=== PATIENT | male | born 1955 | race Caucasian/White ===

== ENCOUNTER 2017-11-26 06:55 | Outpatient (CLI) | payer BC ==
--- NOTE | 2017-11-26 08:58 | ULT ---
ABDOMEN ULTRASOUND: HISTORY: Hepatomegaly. COMPARISON: None. TECHNIQUE: Utilizing a multihertz transducer, sonographic imaging of the abdomen is performed in the longitudina l and transverse plane. FINDINGS: Heterogeneous echotexture of the liver due to hepatic steatosis or hepatocellular disease. Right hep atic lobe is enlarged measuring 22 cm. Pancreas is obscured by bowel gas. The spleen is enlarged measuring 17.6 cm. Both kidneys have an overall normal cortical echotexture. Bilaterally, no hydronephrosis. The left kidney measures 12.4 x 5.6 x 5.0 cm. The right kidney measures 12.9 x 6.5 x 5.3 cm. No sonographic evidence of cholelithiasis, gallbladder wall thickening, or pericholecystic fluid. Ne gative [place]'s sign. Common bile duct diameter is 0.4 cm. A small amount of fluid in the perihepatic space. There is an echogenic focus within the main portal vein compatible with thrombus. There is also some thrombus in the visualized inferior vena cava. Suboptimal evaluation of the aorta. IMPRESSION: 1. 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 2. Hepatosplenomegaly. CODE T POS: [facility]
== END 2017-11-26 06:56 | disposition home or self-care (01) ==
LOC: ULT 06:55
PROVIDERS: ATTEND Family Medicine
DX: R16.0 Hepatomegaly, not elsewhere classified (principal); I82.220 Acute embolism and thrombosis of inferior vena cava; R16.2 Hepatomegaly with splenomegaly, not elsewhere classified
CPT/HCPCS: 76700

== ENCOUNTER 2018-02-15 08:49 | Inpatient (IN) | payer BC ==
[2018-02-15 09:06] LABS: #Eosinphils 0.1 thou/uL (0.0-0.7); #Lymphocytes 0.6 thou/uL (1.20-3.40); #Monocytes 0.6 thou/uL (0.11-0.59); #Neutrophils 5.9 thou/uL (1.40-6.50); %Basophils 0.5 % (0.0-1.0); %Eosinophils 1.9 % (0.0-10.0); %Lymphocytes 7.8 % (21.0-51.0); %Monocytes 7.8 % (0.0-10.0); Hemoglobin 8.4 g/dL (14.0-18.0); Mean Corpuscular HGB CONC 32.3 g/dL (32.0-36.0); Mean Corpuscular Hemoglobin 25.2 pg (27.0-31.0); Mean Platelet Volume 8.8 fL (7.4-10.4); Platelet Count 125 thou/uL (130-400); RBC Distribution Width 17.8 % (11.5-14.5); Red Blood Cell (RBC) Count 3.34 mill/uL (4.70-6.10); White Blood Cell (WBC) Count 7.2 thou/uL (4.8-10.8)
[2018-02-15] MEDS ORDERED: Ondansetron ODT 4 MG TAB ONE (09:11)
[2018-02-15 09:41] LABS: ALT (SGPT) 18 U/L (8-55); AST (SGOT) 28 U/L (5-34); Albumin 3.7 g/dL (3.4-4.8); Alkaline Phosphatase 104 U/L (40-150); Anion Gap 14 mmol/L (10-20); BUN (Urea Nitrogen) 20 mg/dL (8.4-25.7); Bilirubin, Total 0.9 mg/dL (0.2-1.2); CK (CPK) 169 U/L (30-200); Calc. Creatinine Clearance 0 mL/min (70-130); Carbon Dioxide 22 mmol/L (23-31); Chloride 107 mmol/L (98-107); Estimated GFR-MDRD 52; Glucose 113 mg/dL (80-115); Potassium 3.9 mmol/L (3.5-5.1); Protein, Total 8.7 g/dL (5.8-8.1); Sodium 139 mmol/L (136-145)
[2018-02-15 09:45] LABS: CKMB 1.6 ng/mL (0-6.6); Troponin I 0.207 ng/mL (< 0.028)
[2018-02-15] MEDS ORDERED: Furosemide 20 MG/2 ML VIAL ONE (10:49)
[2018-02-15] MEDS ORDERED: Enoxaparin Sodium 100 MG/ML SYRINGE ONE (10:49)
[2018-02-15] MEDS ORDERED: Aspirin 325 MG TAB ONE (10:49)
--- NOTE | 2018-02-15 11:09 | RAD ---
CHEST 1 VIEW: Date: 02/15/18 HISTORY: Shortness of breath. COMPARISON: None. FINDINGS: Heart size is enlarged. There are perihilar and lower lobe air space opacities. No pneumothorax. IMPRESSION: 1. Abnormal perihilar and lower lobe air space opacities can be seen with atypical infection. Early edema is a possibility. 2. Mild cardiomegaly. POS: [facility]
--- NOTE | 2018-02-15 11:29 | CT ---
CT ANGIOGRAM THORAX WITH IV CONTRAST AND 3D RECONSTRUCTIONS: Date: 02/15/18 HISTORY: Dyspnea and shortness of breath, which has been persistent since Sunday after chemotherapy medicat ion. Chest tightness. COMPARISON: None available. FINDINGS: There are filling defects seen within segmental and subsegmental right upper lobe pulmonary arteries. Extensive filling defect within right upper lobe pulmonary artery related to pulmonary embolus. Thoracic aorta is not well opacified, but is normal in caliber. Minimal vascular calcifications are s een in the thoracic aorta and pulmonary arteries. There is a small right and tiny left pleural effusion. There are patchy ground-glass densities in the right upper lobe and to a lesser extent involving the right middle lobe and left upper lobe. These ground-glass opacities may be related to infectious or i nflammatory process. There is a 4.0 mm noncalcified left lower lobe pulmonary nodule (image 60, series 3), which is too sm all to further characterize. There is soft tissue density seen within the right hilar region, as well as subcarinal region, in add ition to mild increase in number of lymph nodes in the mediastinum, which are not particularly enlarg ed, but are increased in number. These lymph nodes may be reactive in origin. Calcified left hilar ly mph nodes are present. Calcified granulomata are seen in the visualized spleen. There is an incompletely imaged heterogeneous mass associated with the right adrenal gland, which kris sures 4.3 cm x 2.8 cm on this examination and does not demonstrate an attenuation coefficient compati ble with an adrenal adenoma. Small amount of free fluid is seen adjacent to the liver and spleen. IMPRESSION: 1. Extensive right upper lobe pulmonary emboli. 2. Ground-glass opacities within the lungs bilaterally, much greater in the right upper lobe, which may be related to infectious or inflammatory process. Follow-up to resolution is recommended. 3. Small bilateral pleural effusions. 4. Heterogeneous right adrenal mass. This does not demonstrate attenuation coefficient compatible wi th an adrenal adenoma. A metastatic lesion cannot be entirely excluded. CT abdomen following adrenal mass protocol is recommended. 5. Mild increase in number of mediastinal and hilar lymph nodes, which could be reactive in origin. There is incomplete imaging of what appears to be mildly prominent lymph nodes in the region of the p kiana hepatis, but this is incompletely imaged and could be related to nonopacification of vascular st ructures. This can also be further evaluated on CT abdomen. 6. Small amount of ascites. Above findings discussed with FREDDY Cadena, in the emergency department on 02/15/18 at 1026 ho urs. CODE CR. POS: [facility]
[2018-02-15] MEDS ORDERED: ISOVUE-370 76%-LOCM 1 ML ONE (11:31)
[2018-02-15 12:10] LABS: INR-International Normal Ratio 1.1; PTT 29.9 SEC (22.9-36.1); Prothrombin Time 14.2 SEC (12.0-14.7)
[2018-02-15 14:29] VITALS: BMI 31.3
[2018-02-15] MEDS ORDERED: Acetaminophen 325 MG TAB PO PRN (14:50)
--- NOTE | 2018-02-15 16:18 | ULT ---
ULTRASOUND WITH DOPPLER DUPLEX VENOUS LOWER EXTREMITIES BILATERAL: HISTORY: 62-year-old male with pulmonary thromboembolism. TECHNIQUE: Color flow Doppler, spectral waveform analysis of pulsed Doppler, and dyson-scale imaging with melo alicia and augmentation, were used to evaluate the bilateral common femoral, femoral, popliteal, cath lab technologist ior tibial, and superficial femoral, veins; and the proximal portions of the profunda femoral and gre ater saphenous, veins. FINDINGS: There is normal compressibility, demonstration of blood flow by color Doppler and pulsed Doppler, and response to augmentation, in all interrogated veins. IMPRESSION: Negative. No deep vein thrombosis in the bilateral lower extremities. jn[] POS: [facility]
[2018-02-15 20:41] LABS: Hemoglobin 7.8 g/dL (14.0-18.0); Platelet Count 97 thou/uL (130-400)
[2018-02-15] MEDS: Enoxaparin Sodium 100 MG/ML SYRINGE SC SCH (21:51)
--- NOTE | 2018-02-16 00:20 | CON ---
DATE OF CONSULTATION: 02/15/2018 HISTORY OF PRESENT ILLNESS: Ajay Vance is a pleasant 62-year-old gentleman with a two-month diag nosis of liver cancer. He has cirrhosis especially from alcohol abuse. He two days ago started new medication called Nexavar 200 mg twice a day, second pill he took in the evening, he developed shortn ess of breath, tightness of the chest, had a cough. His one of the side effects with difficulty breathing but no tightness of the chest. He came to the ER, where a CT angio showed rather extensive pulmonary emboli. He had a venogram done initially told me he has noticed some lower extremity swelling. He worked in the [employer] business for a long time. He says about recently 2 months ago, it is very active without getting short of breath, he is trying most of his life. He says up to 6 beers a day. Addit ionally, he says he has smoked up to pack and a half for most of his life. Denies any previous history of TB, pneumonia, or bronchiolitis. PAST MEDICAL HISTORY: Cirrhosis of the liver, complicated by hepatocellular carcinoma diagnosed ____ _ in [place], status post 5 treatments of radiation followed by Nexavar, and chemotherapy twice a day . PAST SURGICAL HISTORY: Apparently, otherwise none except for the previously mentioned endoscopy and biopsy, CHRONIC MEDICATION: Nexavar. FAMILY HISTORY: No history of diabetes, hypertension. SOCIAL HISTORY: As noted above. REVIEW OF SYSTEMS: Ten-point negative. PHYSICAL EXAMINATION: GENERAL: No acute distress at rest. VITAL SIGNS: Sats are 100% on room air, temperature 99, respiration rate 16, pulse 73, blood pressur e 150/84. EXTREMITIES: Got 1+ ankle edema. CHEST: His left lung appears to be slightly more swollen. Chest reveals decreased breath sounds, no wheezing. CARDIAC: Normal S1, S2, no gallops. ABDOMEN: Soft, no masses. LABORATORY DATA: Creatinine is 1.38. He sees a local job honer for ongoing evaluation. White count of 7000, H&H 8 and 26, platelet count is low 125. INR is normal. D-dimer was 1.65. BNP was 2678. Markedly elevated. IMPRESSION: 1. Pulmonary emboli, bilateral right greater than left. 2. Elevated BNP. 3. Cirrhosis. 4. Hepatocellular carcinoma. 5. Anemia with thrombocytopenia. PLAN: The patient apparently is a DNR. I agree with Lovenox. If he has any contraindication becaus e thrombocytopenic starts bleeding. He needs inferior cava filter at that time. We will observe him. I was surprised about the BNP being elevated. Order an echo to assess LV function. We will follow. This is a consultation note, 70 minutes, 50% in direct patient care.
--- NOTE | 2018-02-16 00:27 | HP ---
CHIEF COMPLAINT: Cough and chest tightness with shortness of breath. 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 The last was 3 weeks ago. He subsequently was started on oral therapy with sorafenib. Patient actually started t hat 2 days ago, was already starting to feel some bit of a cough. Subsequently, yesterday, the patie nt had increasing chest tightness, some shortness of breath, and cough productive of mostly clear whi te sputum. He was having some sinus drainage and some possible gagging with some dry heaves and some nausea associated with that. He has had some mild discomfort in the chest as well. The patient sub sequently presented to the emergency department with those symptoms. PAST MEDICAL HISTORY: Notable for the above-mentioned hepatocellular carcinoma, which was apparently diagnosed back in November. 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 The patient was experiencing some ascites and lower extremit y edema at that time. He reports that he was ultimately seen in [place] and had radiation therapy in these areas where there appeared to be thrombus. He states with that he had some improvement, but w as never actually placed on any type of anticoagulation. The patient also has history of hypertensio n, but he does not take any medications for that. PAST SURGICAL HISTORY: None. REVIEW OF SYSTEMS: Notable for some diarrhea associated with the chemotherapy. I also had some lowe r extremity edema, but otherwise a ten-system review was negative. FAMILY HISTORY: Notable for hypertension in his father. His mother in her old age of natural c auses, but nothing else is specifically known. He has a sister with history of pancreatic cancer. SOCIAL HISTORY: The patient smokes from 1 to 1-1/2 packs a day for 30 years. Last cigarette was a c ouple of days ago. The patient has a history of significant alcohol abuse, which he discontinued whe n he got his cancer diagnosis. Denies drugs. He is . He is a DNR and his would be his surrogate decision maker. ALLERGIES: None. HOME MEDICATIONS: Only the sorafenib 200 mg 1 p.o. b.i.d. PHYSICAL EXAMINATION: VITAL SIGNS: Temperature is 99.5, pulse 73, respirations 16, O2 sat 99% on room air, BP is 154/87. GENERAL APPEARANCE: Age appropriate male. He is in no distress. He is awake, alert, oriented, very pleasant, cooperative. HEENT: PERRL. No OP lesions. NECK: Supple and symmetric. HEART: Regular with S3 gallop. No murmurs. LUNGS: Notable for bibasilar rales with fair air exchange. ABDOMEN: Soft and nondistended. Positive bowel sounds. No masses, no organomegaly. EXTREMITIES: Reveal some trace edema, it is nonpitting. SKIN: Reveals faint, jaundice. LABORATORY AND DIAGNOSTIC DATA: White count 7.2, hemoglobin 8.4, platelets 125,000. INR is 1.1, PTT is 29.90. D-dimer is 1.65. Chemistries notable for creatinine of 1.38, which is better than it was in his previous visits back in November when it was around 2. Troponin was 0.207. BNP is 2678. Total p rotein is 8.7. Chest x-ray showed abnormal perihilar and lower lobe airspace opacities consistent wi th possible edema. Mild cardiomegaly is present. Chest CT shows extensive right upper lobe pulmonar y emboli. There is ground glass opacities within the lungs bilaterally, much greater on the right an d the upper lobe which may represent infectious or inflammatory process. There are small bilateral p leural effusions, heterogeneous right adrenal mass where a metastatic lesion cannot be ruled out. Th ere is some increase in the mediastinal and hilar lymph nodes, which may be reactive. There is a pro minent lymph node in the region of the jairon hepatis, small amount of ascites. Subsequent venogram h as been ordered and appears to be negative for DVT. IMPRESSION AND PLAN: 1. Pulmonary embolus. The patient has been started on Lovenox. We will continue that for now. I a ttempted put in a page to his primary oncologist, Dr. Reid at [facility] in [place]. Need to g et some clarifications on what was actually known about his possible portal vein and IVC clot. It is unclear whether that was this was simply some tumor burden from his hepatocellular carcinoma. 2. Hepatocellular carcinoma. We will hold the sorafenib for now. Again, we will discuss with his o ncologist, they will call me back. 3. Pulmonary edema. The patient appears to have significant volume overload with an S3 gallop and e levated D-dimer and exam consistent with pulmonary edema. Suspect the patient may have some degree o f congestive heart failure. We will obtain an echocardiogram. He has received Lasix and I will cont inue with the IV Lasix. 4. History of portal hypertension, likely secondary to his cirrhosis. We will continue with Lasix.
[2018-02-16 05:56] LABS: ALT (SGPT) 18 U/L (8-55); AST (SGOT) 27 U/L (5-34); Albumin 3.2 g/dL (3.4-4.8); Alkaline Phosphatase 93 U/L (40-150); Anion Gap 13 mmol/L (10-20); BUN (Urea Nitrogen) 21 mg/dL (8.4-25.7); Bilirubin, Total 0.6 mg/dL (0.2-1.2); Calc. Creatinine Clearance 87 mL/min (70-130); Calcium 8.6 mg/dL (7.8-10.44); Carbon Dioxide 24 mmol/L (23-31); Chloride 106 mmol/L (98-107); Estimated GFR-MDRD 59; Globulin 4.4 g/dL (2.4-3.5); Glucose 99 mg/dL (80-115); Potassium 3.7 mmol/L (3.5-5.1); Protein, Total 7.6 g/dL (5.8-8.1); Sodium 139 mmol/L (136-145)
[2018-02-16 06:08] LABS: #Eosinphils 0.1 thou/uL (0.0-0.7); #Lymphocytes 0.4 thou/uL (1.20-3.40); #Monocytes 0.4 thou/uL (0.11-0.59); #Neutrophils 3.2 thou/uL (1.40-6.50); %Basophils 0.4 % (0.0-1.0); %Eosinophils 3.4 % (0.0-10.0); %Lymphocytes 10.1 % (21.0-51.0); %Monocytes 9.6 % (0.0-10.0); %Neutrophils 76.4 % (42.0-75.0); Hemoglobin 7.4 g/dL (14.0-18.0); Mean Corpuscular HGB CONC 32.5 g/dL (32.0-36.0); Mean Corpuscular Hemoglobin 25.3 pg (27.0-31.0); Mean Corpuscular Volume 78.1 fL (78.0-98.0); Mean Platelet Volume 8.7 fL (7.4-10.4); Platelet Count 98 thou/uL (130-400); RBC Distribution Width 17.9 % (11.5-14.5); Red Blood Cell (RBC) Count 2.94 mill/uL (4.70-6.10); White Blood Cell (WBC) Count 4.2 thou/uL (4.8-10.8)
[2018-02-16] MEDS: Enoxaparin Sodium 100 MG/ML SYRINGE SC SCH ×2 (08:44→20:43)
--- NOTE | 2018-02-16 17:25 | PDOC.PN ---
- Subjective Encounter Start Date: 02/16/18 Encounter Start Time: 17:23 Feeling very well. Ambulating all over the floor. No SOB. - Objective Resuscitation Status: Resuscitation Status DNR:Do Not Resuscitate Vital Signs & Weight: Vital Signs (12 hours) Temp Pulse Resp BP Pulse Ox 02/16/18 15:00 98.1 F 79 14 157/83 H 98 02/16/18 11:09 98.1 F 78 16 164/88 H 97 02/16/18 08:50 97.9 F 75 16 98 02/16/18 08:45 97.9 F 75 16 124/79 98 02/16/18 05:40 94 L Weight Weight 218 lb 4.122 oz I&O: 02/15/18 02/16/18 02/17/18 06:59 06:59 06:59 Intake Total 1070 Output Total 400 Balance 670 Result Diagrams: 02/16/18 05:31 02/16/18 05:31 Phys Exam - Physical Examination Constitutional: NAD Respiratory: no wheezing, no rales, no rhonchi, clear to auscultation bilateral Cardiovascular: RRR, no significant murmur Gastrointestinal: soft, non-tender, no distention, positive bowel sounds Musculoskeletal: no edema Dx/Plan (1) Pulmonary embolus Code(s): I26.99 - OTHER PULMONARY EMBOLISM WITHOUT ACUTE COR PULMONALE Status : Acute (2) Hepatocellular carcinoma Code(s): C22.0 - LIVER CELL CARCINOMA Status: Acute (3) CHF (congestive heart failure) Code(s): I50.9 - HEART FAILURE, UNSPECIFIED Status: Acute - Plan * Continue with the Lovenox for now. Will keep him here until I can speak with his oncologist. That will likely be on Sunday. The main questions are what to do with his anticoagulation now and why he was not previously on anticoagulation with the concerns for the IVC thrombus.
--- NOTE | 2018-02-16 17:56 | PRG ---
DATE OF SERVICE: 02/16/2018 SUBJECTIVE: This morning, he is better, less short of breath. OBJECTIVE: VITAL SIGNS: Blood pressure 141/64, 88, sats are 97% on room air, respiration 16, temperature is 98. CHEST: No wheezing or crackles. CARDIAC: Normal S1, S2. No gallops. ABDOMEN: Soft. No masses. LABORATORY DATA: White count is 4000, H&H is 7 and 22, platelet count is low at 98 and appears to be stable. Electrolytes are normal. IMAGING: A venogram was negative. IMPRESSION: 1. Bilateral pulmonary emboli. 2. Cirrhosis. 3. Hepatic cancer. PLAN: Continue present treatment. We can probably switch him over to Eliquis tomorrow.
[2018-02-17] MEDS: Enoxaparin Sodium 100 MG/ML SYRINGE SC SCH (09:06)
[2018-02-17 09:20] LABS: #Eosinphils 0.1 thou/uL (0.0-0.7); #Lymphocytes 0.4 thou/uL (1.20-3.40); #Monocytes 0.4 thou/uL (0.11-0.59); #Neutrophils 3.3 thou/uL (1.40-6.50); %Basophils 0.1 % (0.0-1.0); %Lymphocytes 9.1 % (21.0-51.0); %Monocytes 8.5 % (0.0-10.0); %Neutrophils 79.3 % (42.0-75.0); Hemoglobin 7.6 g/dL (14.0-18.0); Mean Corpuscular HGB CONC 32.3 g/dL (32.0-36.0); Mean Corpuscular Hemoglobin 25.7 pg (27.0-31.0); Mean Corpuscular Volume 79.6 fL (78.0-98.0); Platelet Count 111 thou/uL (130-400); RBC Distribution Width 17.8 % (11.5-14.5); Red Blood Cell (RBC) Count 2.95 mill/uL (4.70-6.10); White Blood Cell (WBC) Count 4.2 thou/uL (4.8-10.8)
[2018-02-17 09:39] LABS: Anion Gap 11 mmol/L (10-20); BUN (Urea Nitrogen) 16 mg/dL (8.4-25.7); Calc. Creatinine Clearance 86 mL/min (70-130); Calcium 8.5 mg/dL (7.8-10.44); Carbon Dioxide 25 mmol/L (23-31); Chloride 106 mmol/L (98-107); Estimated GFR-MDRD 58; Glucose 185 mg/dL (80-115); Potassium 4.3 mmol/L (3.5-5.1); Sodium 138 mmol/L (136-145)
--- NOTE | 2018-02-17 13:00 | PRG ---
DATE OF SERVICE: 02/17/2018 SUBJECTIVE: This morning, he is better. He is less short of breath. PHYSICAL EXAMINATION: VITAL SIGNS: Sats are 98% on room air, temperature 98, pulse rate of 16, blood pressure 140/74. CHEST: No wheezing, no crackles. CARDIAC: Normal S1, S2. No gallops. ABDOMEN: Soft. No masses. LABORATORY DATA: H&H is stable at 7 and 21, platelet count 111, appears to be stable. IMPRESSION: 1. Cirrhosis, hepatocellular carcinoma. 2. Pulmonary embolism, deep venous thrombosis. PLAN: Switch him to Eliquis. He can be discharged home in the next 24-48 hours.
--- NOTE | 2018-02-17 16:49 | PDOC.PN ---
- Subjective Encounter Start Date: 02/17/18 Encounter Start Time: 16:30 Doing well. No complaints. - Objective Resuscitation Status: Resuscitation Status DNR:Do Not Resuscitate Vital Signs & Weight: Vital Signs (12 hours) Temp Pulse Resp BP Pulse Ox 02/17/18 12:00 98.7 F 75 18 131/76 97 02/17/18 08:00 98.2 F 80 16 98 02/17/18 07:45 98.2 F 80 16 142/74 H 98 Weight Weight 220 lb 1.6 oz I&O: 02/16/18 02/17/18 02/18/18 06:59 06:59 06:59 Intake Total 1070 2560 Output Total 400 1550 Balance 670 1010 Result Diagrams: 02/17/18 08:22 02/17/18 08:22 Phys Exam - Physical Examination Constitutional: NAD Neck: no JVD, supple Respiratory: no wheezing, no rales, no rhonchi, clear to auscultation bilateral Cardiovascular: RRR, no significant murmur Gastrointestinal: soft, non-tender, no distention, positive bowel sounds Musculoskeletal: no edema Psychiatric: normal affect, A&O x 3 Dx/Plan (1) Pulmonary embolus Code(s): I26.99 - OTHER PULMONARY EMBOLISM WITHOUT ACUTE COR PULMONALE Status : Acute Comment: Now on Eliquis. (2) Hepatocellular carcinoma Code(s): C22.0 - LIVER CELL CARCINOMA Status: Acute (3) CHF (congestive heart failure) Code(s): I50.9 - HEART FAILURE, UNSPECIFIED Status: Ruled-out Comment: Was likely secondary to the PE. Echo looks good. No significant RV dilatation. - Plan * Changed to Eliquis by Pulm. Will talk with the oncologist at [facility] tomorrow if possible. Clarify treatment plan. Anticipate discharge tomorrow.
[2018-02-17 18:59] LABS: Hemoglobin 7.3 g/dL (14.0-18.0); Platelet Count 97 thou/uL (130-400)
[2018-02-17] MEDS: Apixaban 5 MG TAB PO SCH (20:27)
[2018-02-18 05:49] LABS: Anion Gap 12 mmol/L (10-20); BUN (Urea Nitrogen) 16 mg/dL (8.4-25.7); Calc. Creatinine Clearance 96 mL/min (70-130); Calcium 8.6 mg/dL (7.8-10.44); Carbon Dioxide 24 mmol/L (23-31); Chloride 107 mmol/L (98-107); Estimated GFR-MDRD 65; Glucose 101 mg/dL (80-115); Potassium 4.2 mmol/L (3.5-5.1); Sodium 139 mmol/L (136-145)
[2018-02-18 05:58] LABS: #Eosinphils 0.1 thou/uL (0.0-0.7); #Lymphocytes 0.4 thou/uL (1.20-3.40); #Monocytes 0.4 thou/uL (0.11-0.59); #Neutrophils 3.1 thou/uL (1.40-6.50); %Basophils 0.3 % (0.0-1.0); %Eosinophils 3.4 % (0.0-10.0); %Lymphocytes 8.8 % (21.0-51.0); %Neutrophils 77.6 % (42.0-75.0); Hemoglobin 7.5 g/dL (14.0-18.0); Mean Corpuscular HGB CONC 32.1 g/dL (32.0-36.0); Mean Corpuscular Hemoglobin 25.5 pg (27.0-31.0); Mean Corpuscular Volume 79.5 fL (78.0-98.0); Mean Platelet Volume 9.5 fL (7.4-10.4); Platelet Count 110 thou/uL (130-400); RBC Distribution Width 17.8 % (11.5-14.5); Red Blood Cell (RBC) Count 2.93 mill/uL (4.70-6.10)
[2018-02-18] MEDS: Apixaban 5 MG TAB PO SCH ×2 (08:55→19:38)
--- NOTE | 2018-02-18 10:39 | PRG ---
DATE OF SERVICE: 02/18/2018 He is better. He is less short of breath. PHYSICAL EXAMINATION: VITAL SIGNS: Blood pressure 160/84, sats 97 on room air, respirations 16, temperature 98. CHEST: Chest reveals decreased breath sounds, no wheezing. CARDIAC: Normal S1-S2. No gallops. ABDOMEN: Soft. No masses. LABORATORY: H&H is stable at 7 and 23, platelet count 110. IMPRESSION: 1. Cirrhosis. 2. Liver cancer. 3. Pulmonary embolus. 4. Thrombocytopenia. PLAN: Starting Eliquis 2 mg twice a day. Follow up with his oncologist in [place]. He can see Mandy granados in the office if he desires to do so in the next 3-4 weeks.
[2018-02-18 16:56] VITALS: BP 164/79; TEMP 97.8
== END 2018-02-18 19:45 | disposition home or self-care (01) | DRG 176 ==
LOC: ERS 08:49 → ERHOLD 12:07 → 2NO 13:12
PROVIDERS: ADMIT Internal Medicine; ATTEND Internal Medicine
DX: I26.99 Other pulmonary embolism without acute cor pulmonale (principal); C22.0 Liver cell carcinoma; K76.6 Portal hypertension; J81.1 Chronic pulmonary edema; I82.409 Acute embolism and thrombosis of unspecified deep veins of unspecified lower extremity; K70.30 Alcoholic cirrhosis of liver without ascites; F17.210 Nicotine dependence, cigarettes, uncomplicated; F10.10 Alcohol abuse, uncomplicated; Z66 Do not resuscitate; D69.6 Thrombocytopenia, unspecified; D64.9 Anemia, unspecified
CPT/HCPCS: 36415; 71045; 71275; 80048; 80053; 82553; 82565; 83880; 84484; 85014; 85018; 85025; 85049; 85379; 85610; 85730; 93005; 93306; 93970; 96372; 96374; J1650; J1940; Q0162

== ENCOUNTER 2018-05-15 09:05 | Inpatient (IN) | payer BC ==
[2018-05-15 09:46] LABS: #Basophils 0.1 thou/uL (0.0-0.2); #Eosinphils 0.2 thou/uL (0.0-0.7); #Lymphocytes 0.6 thou/uL (1.20-3.40); #Monocytes 0.8 thou/uL (0.11-0.59); %Basophils 0.8 % (0.0-1.0); %Eosinophils 2.8 % (0.0-10.0); %Lymphocytes 6.4 % (21.0-51.0); %Monocytes 9.5 % (0.0-10.0); %Neutrophils 80.5 % (42.0-75.0); Hemoglobin 7.2 g/dL (14.0-18.0); Mean Corpuscular HGB CONC 30.5 g/dL (32.0-36.0); Mean Corpuscular Hemoglobin 26.6 pg (27.0-31.0); Mean Corpuscular Volume 87.5 fL (78.0-98.0); Mean Platelet Volume 8.4 fL (7.4-10.4); Platelet Count 233 thou/uL (130-400); RBC Distribution Width 20.2 % (11.5-14.5); Red Blood Cell (RBC) Count 2.71 mill/uL (4.70-6.10); White Blood Cell (WBC) Count 8.8 thou/uL (4.8-10.8)
[2018-05-15 10:00] LABS: PTT 34.1 SEC (22.9-36.1)
[2018-05-15 10:01] LABS: INR-International Normal Ratio 1.4
[2018-05-15 10:05] LABS: ALT (SGPT) 38 U/L (8-55); AST (SGOT) 47 U/L (5-34); Albumin 3.2 g/dL (3.4-4.8); Alkaline Phosphatase 174 U/L (40-150); Anion Gap 12 mmol/L (10-20); BUN (Urea Nitrogen) 24 mg/dL (8.4-25.7); Bilirubin, Total 0.7 mg/dL (0.2-1.2); Calc. Creatinine Clearance 0 mL/min (70-130); Calcium 8.7 mg/dL (7.8-10.44); Carbon Dioxide 24 mmol/L (23-31); Chloride 105 mmol/L (98-107); Estimated GFR-MDRD 71; Globulin 5.7 g/dL (2.4-3.5); Glucose 96 mg/dL (80-115); Potassium 4.9 mmol/L (3.5-5.1); Protein, Total 8.9 g/dL (5.8-8.1); Sodium 136 mmol/L (136-145)
[2018-05-15 10:31] LABS: Troponin I 0.026 ng/mL (< 0.028)
[2018-05-15] MEDS ORDERED: ISOVUE-370 76%-LOCM 1 ML ONE (11:19)
--- NOTE | 2018-05-15 12:18 | CT ---
CT ANGIO OF CHEST PERFORMED WITH INTRAVENOUS CONTRAST ENHANCEMENT WITH 3D RECONSTRUCTIONS: HISTORY: Cough, shortness of breath. COMPARISON: A 02/15/2018 CT examination and an MRI of the abdomen of 12/14/2017. FINDINGS: There are worsening parenchymal changes in the right upper lobe with pleural-based parenchymal change s now seen. 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 The lungs are otherwise clear. Calcified granulomas are seen in the left lung base. The Tiny left lower lobe pulmonary nodule seen on the prior examination now seen on axial image 55 is stable. There is a second similar-sized nodule seen on axial image 56 also felt to be s table as compared to the prior exam. The right-sided pleural effusion has resolved. The mediastinal lymph nodes are not increased and may be slightly less prominent than on the prior ex amination. The thoracic aorta is normal in caliber. Pulmonary arteries are well opacified. The right upper lob e pulmonary thrombus which is stable as compared to the prior examination is again noted but, otherwi se, no additional emboli. Caudate lobe liver mass is again seen with some low-attenuation change in the left lobe of the liver. Please refer to the previous MRI report which described extensive changes including tumor thrombus in the hepatic veins and IVC and portal vein. The right adrenal mass is stable. The spleen is enlarged. IMPRESSION: 1. Stable appearance to the right upper lobe thrombus. There are some worsening parenchymal changes in the right upper lobe which were more pleural based and could be on the basis of the chronic embolu s. 2. Caudate lobe mass and changes in the left lobe of the liver difficult to assess on the arterial p hase examination but are probably stable with what appears to be thrombus extending to the inferior v daniel cava level. 3. Splenomegaly. 4. Stable right adrenal lesion. Heterogeneous right adrenal mass and stable appearance to the small er left adrenal lesion. POS: [facility]
[2018-05-15] MEDS ORDERED: Ondansetron ODT 4 MG TAB PO PRN (14:27)
[2018-05-15] MEDS ORDERED: Ondansetron PF 4 MG/2 ML Vial IVP PRN (14:27)
[2018-05-15] MEDS ORDERED: Acetaminophen 325 MG TAB PO PRN ×2 (14:27→15:02)
[2018-05-15] MEDS ORDERED: Acetaminophen 650 MG Suppository PR PRN (15:02)
--- NOTE | 2018-05-15 16:00 | HP ---
PRIMARY CARE PROVIDER: None at this time. He was seen by Dr. Gamaliel Joseph in the past and Dr. Joseph will be happy to follow up with him as outpatient. The patient was reportedly following a different primary care provider in [place] over the last few months. CHIEF COMPLAINT: Right chest pain. HISTORY OF PRESENT ILLNESS: Mr. Vance is a pleasant 62-year-old gentleman who was seen at [facility] on 05/15/2018. He reports that he was diagnosed with hepatocellular carcinoma earlier this year. He was referred to [facility] in [place] for transplant, but was not a good candidate for transplant. He got radiation therapy in [place] and he also started chemotherapy through Dr. Lyons' office in [place]. He last saw his therapeutic recreation specialist, Dr. Encarnacion and oncologist Dr. Lyons 2 weeks ago. He reports that he has been coughing blood on and off for more than a month. He reports blood in stool for the last few weeks. He reports it as small amount. He also reports shortness of breath over the last few days. He also reports pain over the right chest wall over the last few days. He describes it as sharp, worse with sneezing or coughing, 10/10 at its worst and nonradiating. He also reports generalized weakness. REVIEW OF SYSTEMS: All other systems reviewed and found to be negative. PAST MEDICAL HISTORY: Hepatocellular carcinoma, pulmonary embolism diagnosed in 01/2018, portal vein thrombosis, inferior vena cava thrombosis and hypertension. PAST SURGICAL HISTORY: None. ALLERGIES: No known drug allergies. HOME MEDICATIONS: Sorafenib 200 mg 2 times a day and Eliquis 5 mg 2 times a day. FAMILY HISTORY: Hypertension in his father. SOCIAL HISTORY: Patient smokes half a pack of cigarettes a day. He denies alcohol use or recreational drug use. CODE STATUS: I discussed his code status. He is DNR. PHYSICAL EXAMINATION: GENERAL: On examination, Mr. Vance is awake and alert, not in acute distress. VITAL SIGNS: Blood pressure is 131/75, pulse 81, respiratory rate 19 and oxygen saturation 100% on room air. He is afebrile. EYES: No scleral icterus. He has conjunctival pallor. ENT: Moist mucosal membranes, no oropharyngeal erythema or exudates. NECK: Supple, nontender, trachea is midline. RESPIRATORY: Accessory muscles of breathing are not active. Chest wall movements are symmetric bilaterally. LUNGS: Clear to auscultation without wheeze, rhonchi or crepitations. CARDIOVASCULAR: S1 and S2 are heard, regular. Peripheral pulses palpable. No carotid bruit, no pericardial rub. ABDOMEN: Distended, nontender, bowel sounds heard. NEUROLOGIC: Cranial nerves II-XII intact. Deep tendon reflexes are 2+. MUSCULOSKELETAL: Power is 5/5 in all 4 extremities. SKIN: No rashes or subcutaneous nodules. LYMPHATIC: No cervical lymphadenopathy. PSYCHIATRIC: Normal mood, normal affect, patient is oriented to person, place, and time. IMAGING DATA AND LABORATORY DATA: Mr. Vance labs and investigations were reviewed. I reviewed his electrocardiogram, which shows normal sinus rhythm with premature ventricular complexes. I also reviewed CT angiogram of the chest , which shows stable appearing right upper lobe thrombus. He also has caudate lobe mass, splenomegaly and right adrenal lesion. He has normal white count, normocytic anemia with hemoglobin 7.2, last known hemoglobin 12.3 on 04/12/2018 but his hemoglobin was between 7 and 8 prior to that, normal platelet count, INR 1.4, normal electrolytes, normal creatinine, normal total bilirubin, elevated AST of 47, elevated alkaline phosphatase of 174, normal troponin I, decreased albumin of 3.2 and elevated serum total protein of 8.9. ASSESSMENT AND PLAN: Mr. Vance is a pleasant 62-year-old gentleman who was seen at [facility] on 05/15/2018. His problem list includes: 1. Symptomatic anemia: Likely due to a combination of factors including lower gastrointestinal bleed and chemotherapy. Patient will be admitted to the hospital for further management. Oncology Service and Gastroenterology Services will be consulted. We will recheck his hemoglobin. We will transfuse as needed. 2. Lower gastrointestinal bleed: Patient has a positive fecal occult blood test. We will consult GI Service for opinion and help with management. 3. Hepatocellular carcinoma: We will await Oncology Service recommendations regarding his chemotherapy. 4. Hypertension: The patient is currently not on any antihypertensives. We will monitor vital signs and add antihypertensives as needed. 5. Tobacco abuse: Patient has been counseled regarding tobacco cessation. We will start him on nicotine replacement therapy. LEVEL OF RISK: High. LEVEL OF COMPLEXITY: High. MTDD
[2018-05-15 17:48] VITALS: BMI 29.2
[2018-05-15] MEDS: Nicotine 14 MG PATCH TD SCH (17:53)
[2018-05-15] MEDS ORDERED: Pantoprazole 40 MG VIAL IVP SCH (19:15)
[2018-05-15] MEDS: Pantoprazole 80 MG in Sodium Chloride 0.9% 100 ML IVP SCH (20:33)
--- NOTE | 2018-05-15 21:31 | CON ---
DATE OF CONSULTATION: 05/15/2018 CHIEF COMPLAINT: Shortness of breath. HISTORY OF PRESENT ILLNESS: Mr. Vance is a 62-year-old man who presented to the emergency room thi s morning with shortness of breath on exertion and right upper pain in his chest when he coughs or ta kes a deep breath. He was noted to have worsening anemia and GI was consulted to follow up on that. He does cough some streaks of red blood intermittently. For the last week, he has had black stool o nce per day. He did start taking magnesium week and a half ago and had some loose stools with that f or which he took Imodium a couple of times. He has had chronic lower abdominal pain that has been go ing on for months. PAST MEDICAL HISTORY: Cirrhosis of the liver and hepatocellular carcinoma. 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 He has prior pulmonary embolism and h as been on Eliquis twice daily. He underwent EGD and colonoscopy by Dr. Encarnacion for evaluation of anemi a back in 11/2017. The upper endoscopy showed portal hypertensive gastropathy and a couple of angioe ctasias which were not bleeding. Colonoscopy revealed multiple polyps which were removed. His hemog lobin had been running in the 7-8 range back in January, but as recently as a month ago, his hemoglobin was 12 and now when he presents to the emergency room today, his hemoglobin is back down to 7.2. PAST SURGICAL HISTORY: Upper and lower endoscopy. FAMILY HISTORY: Negative for GI malignancies. SOCIAL HISTORY: He is . No alcohol. He is a daily smoker. ALLERGIES: No known drug allergies. CURRENT MEDICATIONS: Include Eliquis 5 mg twice daily and sorafenib 200 mg twice daily. REVIEW OF SYSTEMS: Negative x10 systems reviewed except as stated in the history of present illness. PHYSICAL EXAMINATION: VITAL SIGNS: Temperature 97.6, pulse 82, blood pressure 140/71. GENERAL: He is pale. He is in no acute distress, alert and oriented x3, no asterixis on neurologic exam. HEENT: Eyes have no scleral icterus. Oropharynx is clear, without lesions. NECK: No cervical or supraclavicular lymphadenopathy. LUNGS: Clear to auscultation bilaterally. HEART: Regular rate and rhythm. ABDOMEN: Soft. No tenderness. Bowel sounds are present. EXTREMITIES: Trace lower extremity edema. RECTAL: Reveals formed stool in the rectal vault which is a trace amount of black stool. LABORATORY DATA: White blood cell count 8.8, hemoglobin 7.2, platelets 233. INR 1.4, albumin 3.2, c reatinine 1.06, bilirubin 0.7, AST 47, ALT 38, alkaline phosphatase 174, albumin 3.2. IMPRESSION: 1. Anemia of acute blood loss. 2. Gastrointestinal bleed with melena intermittently over the last week. Upper endoscopy in November marisol wed some nonbleeding arteriovenous malformations at that time. Gastritis was also noted. The black stools indicate more likely an upper gastrointestinal source. His anemia might also be more of a mul tifactorial process given his liver cancer treatment. 3. Portal vein thrombosis and vena cava thrombosis and pulmonary thrombosis. He has been on Eliquis for this. RECOMMENDATIONS: 1. Start proton pump inhibitor. 2. Recheck his hemoglobin in the morning. If he fails to respond to transfusion appropriately then consider more immediate endoscopy. Otherwise, we will see how he responds to proton pump inhibitor a nd follow the trend of the hemoglobin. 3. Dr. Encarnacion will be back tomorrow.
[2018-05-16 05:12] LABS: #Eosinphils 0.1 thou/uL (0.0-0.7); #Lymphocytes 0.4 thou/uL (1.20-3.40); #Monocytes 0.4 thou/uL (0.11-0.59); #Neutrophils 4.1 thou/uL (1.40-6.50); %Basophils 0.5 % (0.0-1.0); %Eosinophils 2.2 % (0.0-10.0); %Lymphocytes 8.5 % (21.0-51.0); %Monocytes 7.6 % (0.0-10.0); %Neutrophils 81.2 % (42.0-75.0); Hemoglobin 6.7 g/dL (14.0-18.0); Mean Corpuscular HGB CONC 31.9 g/dL (32.0-36.0); Mean Corpuscular Hemoglobin 27.8 pg (27.0-31.0); Mean Corpuscular Volume 87.1 fL (78.0-98.0); Mean Platelet Volume 8.3 fL (7.4-10.4); Platelet Count 160 thou/uL (130-400); RBC Distribution Width 19.2 % (11.5-14.5); Red Blood Cell (RBC) Count 2.41 mill/uL (4.70-6.10); White Blood Cell (WBC) Count 5.1 thou/uL (4.8-10.8)
[2018-05-16 05:33] LABS: Anion Gap 9 mmol/L (10-20); BUN (Urea Nitrogen) 20 mg/dL (8.4-25.7); Calc. Creatinine Clearance 98 mL/min (70-130); Calcium 8.2 mg/dL (7.8-10.44); Carbon Dioxide 23 mmol/L (23-31); Chloride 106 mmol/L (98-107); Estimated GFR-MDRD 75; Glucose 96 mg/dL (80-115); Potassium 4.4 mmol/L (3.5-5.1); Sodium 134 mmol/L (136-145)
[2018-05-16] MEDS ORDERED: Diphenoxylate HCl/Atropine Tablet PO PRN (07:16)
[2018-05-16] MEDS ORDERED: Temazepam 15 MG CAP PO PRN (07:16)
[2018-05-16] MEDS ORDERED: HYDROcodone/Acetaminophen 5/325 mg Tablet PO PRN (07:16)
[2018-05-16] MEDS ORDERED: Loratadine 10 MG TAB PO PRN (07:16)
[2018-05-16] MEDS ORDERED: Senokot S 8.6-50 MG TAB PO PRN (07:16)
[2018-05-16] MEDS ORDERED: hydrALAZINE 20 MG/ML VIAL SLOW IVP PRN (07:16)
[2018-05-16] MEDS ORDERED: Diabetic Tussin 200 MG/10 ML UDCUP PO PRN (07:16)
[2018-05-16] MEDS ORDERED: Ondansetron ODT 4 MG TAB PO PRN (07:16)
[2018-05-16] MEDS ORDERED: Ondansetron PF 4 MG/2 ML Vial IVP PRN (07:16)
[2018-05-16] MEDS ORDERED: Sodium Chloride 0.65% Nasal 44 ML BOT EA NARE PRN (07:16)
[2018-05-16] MEDS ORDERED: Cepastat Lozenges 1 LOZ PO PRN (07:16)
[2018-05-16] MEDS ORDERED: Eucerin (Mineral Oil/Petrolatum,White) 30 gm Jar TOP PRN (07:16)
[2018-05-16] MEDS ORDERED: Artificial Tears 18 DROP/0.9 ML EA EYE PRN (07:16)
[2018-05-16] MEDS: Pantoprazole 80 MG in Sodium Chloride 0.9% 100 ML IVP SCH ×2 (08:06→20:25)
[2018-05-16] MEDS: Cyanocobalamin (Vitamin B-12) 1,000 MCG TAB PO SCH (08:10)
[2018-05-16] MEDS: Ferrous Sulfate 325 MG TAB PO SCH (08:10)
[2018-05-16] MEDS: Folic Acid 1 MG TAB PO SCH (08:10)
--- NOTE | 2018-05-16 10:06 | PDOC.PN ---
- Subjective Encounter Start Date: 05/16/18 Encounter Start Time: 07:00 -: old records requested/rev Patient seen and examined. today he feels weak, he has right side chest pain only with cough. No overnight events - Objective Resuscitation Status: Resuscitation Status DNR:Do Not Resuscitate MAR Reviewed: Yes Vital Signs & Weight: Vital Signs (12 hours) Temp Pulse Pulse Resp BP BP BP 05/16/18 07:00 97.9 F 81 16 137/73 05/16/18 03:25 97.8 F 77 16 129/66 05/16/18 03:00 97.8 F 77 16 129/66 05/16/18 00:43 98.0 F 85 16 134/72 05/16/18 00:33 98.0 F 87 16 136/68 Pulse Ox 05/16/18 07:00 97 05/16/18 03:25 05/16/18 03:00 99 05/16/18 00:43 05/16/18 00:33 Weight Weight 198 lb I&O: 05/15/18 05/16/18 05/17/18 06:59 06:59 06:59 Intake Total 350 500 Balance 350 500 Result Diagrams: 05/16/18 04:40 05/16/18 04:40 Radiology Reviewed by me: Yes (CTA) Phys Exam - Physical Examination Constitutional: NAD HEENT: PERRLA, moist MMs, sclera anicteric pallor+ Neck: no JVD, supple Respiratory: no wheezing, no rales, no rhonchi Cardiovascular: RRR, no significant murmur, no rub Gastrointestinal: soft, no distention, positive bowel sounds Musculoskeletal: no edema, pulses present Neurological: non-focal, normal sensation Psychiatric: normal affect, A&O x 3 Skin: no rash, normal turgor, cap refill <2 seconds Dx/Plan (1) GI bleed Code(s): K92.2 - GASTROINTESTINAL HEMORRHAGE, UNSPECIFIED Status: Acute (2) Anemia due to acute blood loss Code(s): D62 - ACUTE POSTHEMORRHAGIC ANEMIA Status: Acute (3) Portal vein thrombosis secondary to HCC invasion Code(s): C22.0 - LIVER CELL CARCINOMA; I81 - PORTAL VEIN THROMBOSIS Status: Chronic (4) Hepatocellular carcinoma Code(s): C22.0 - LIVER CELL CARCINOMA Status: Chronic (5) Pulmonary embolus Code(s): I26.99 - OTHER PULMONARY EMBOLISM WITHOUT ACUTE COR PULMONALE Status : Chronic Qualifiers: Chronicity: chronic Comment: - Plan cont current plan of care, plan discussed w/ family * today his Hb dropped to 6.7 from 7.2, will transfuse 1 unit PRBC * his anemia is multifectorial, GI to decide about any need of procedure * discussed with * medication reviewed as below * symptomatic treatment. Review of Systems - Review of Systems Eyes: negative: Pain, Vision Change, Conjunctivae Inflammation, Eyelid Inflammation, Redness, Other ENT: negative: Ear Pain, Ear Discharge, Nose Pain, Nose Discharge, Nose Congestion, Mouth Pain, Mouth Swelling, Throat Pain, Throat Swelling, Other Respiratory: negative: Cough, Dry, Shortness of Breath, Hemoptysis, SOB with Excertion, Pleuritic Pain, Sputum, Wheezing Cardiovascular: negative: chest pain, palpitations, orthopnea, paroxysmal nocturnal dyspnea, edema, light headedness, other Gastrointestinal: negative: Nausea, Vomiting, Abdominal Pain, Diarrhea, Constipation, Melena, Hematochezia, Other Genitourinary: negative: Dysuria, Frequency, Incontinence, Hematuria, Retention , Other Musculoskeletal: negative: Neck Pain, Shoulder Pain, Arm Pain, Back Pain, Hand Pain, Leg Pain, Foot Pain, Other Skin: negative: Rash, Lesions, Guille, Bruising, Other - Medications/Allergies Allergies/Adverse Reactions: Allergies Allergy/AdvReac Type Severity Reaction Status Date / Time No Known Allergies Allergy Verified 02/15/18 14:58 Medications: Current Medications Acetaminophen (Tylenol) 650 mg PO Q4H PRN PRN Reason: Headache/Fever/Mild Pain (1-3) Hydrocodone Bitart/Acetaminophen (Creede 5/325) 1 tab PO Q4H PRN PRN Reason: Moderate Pain (4-6) Artificial Tears (Tears Naturale) 2 drop EA EYE PRN PRN PRN Reason: Dry Eyes Cyanocobalamin (Vitamin B-12) 1,000 mcg PO DAILY [facility] Last Admin: 05/16/18 08:10 Dose: 1,000 mcg Diphenoxylate HCl/Atropine (Lomotil) 2 tab PO ONE PRN PRN Reason: Diarrhea/Loose Stools Stop: 05/16/18 11:00 Ferrous Sulfate (Feosol) 325 mg PO [facility] Last Admin: 05/16/18 08:10 Dose: 325 mg Folic Acid (Folvite) 1 mg PO DAILY [facility] Last Admin: 05/16/18 08:10 Dose: 1 mg Guaifenesin (Robitussin Sf) 200 mg PO Q4H PRN PRN Reason: Cough Hydralazine HCl (Apresoline) 10 mg SLOW IVP Q4H PRN PRN Reason: SBP > 180 and HR < 70 Pantoprazole Sodium 80 mg/ (Sodium Chloride) 100 mls @ 10 mls/hr IVP INF [facility] Last Admin: 05/16/18 08:06 Dose: 100 mls Loratadine (Claritin) 10 mg PO DAILYPRN PRN PRN Reason: Sinus Symptoms Mineral Oil/White Petrolatum (Eucerin Cream) 0 gm TOP BIDPRN PRN PRN Reason: Dry Skin Nicotine (Nicoderm Patch) 14 mg TD Q24HR [facility] Last Admin: 05/15/18 17:53 Dose: 14 mg Ondansetron HCl (Zofran Odt) 4 mg PO Q6H PRN PRN Reason: Nausea/Vomiting Ondansetron HCl (Zofran) 4 mg IVP Q6H PRN PRN Reason: Nausea/Vomiting Senna/Docusate Sodium (Senokot S) 2 tab PO BID PRN PRN Reason: Constipation Sodium Chloride (Flush - Normal Saline) 10 ml IVF Q12HR [facility] Last Admin: 05/16/18 08:10 Dose: 10 ml Sodium Chloride (Flush - Normal Saline) 10 ml IVF PRN PRN PRN Reason: Saline Flush Sodium Chloride ([place] Nasal [place] 0.65%) 0 ml EA NARE QIDPRN PRN PRN Reason: Nasal Congestion Temazepam (Restoril) 15 mg PO HSPRN PRN PRN Reason: Insomnia Throat Lozenges (Cepastat Lozenges) 1 karlos PO Q2H PRN PRN Reason: Sore Throat
--- NOTE | 2018-05-16 12:21 | CON ---
DATE OF CONSULTATION: 05/16/2018 REASON FOR CONSULTATION: Hepatocellular carcinoma and GI bleed. HISTORY OF PRESENT ILLNESS: A 62-year-old male with hepatocellular carcinoma, status post radiation and now with metastatic disease on sorafenib presenting with gastrointestinal bleed. The p atient states he has been coughing blood on and off for more than a month, mostly with smells streaks or specks of blood in the sputum and now has had blood in the stool for the past couple weeks and re ports a small amount. He has also had mild shortness of breath that is worse on exertion, but denies dizziness, lightheadedness, chest pain or palpitations. He does have some right chest wall pain due to a pulmonary embolism and is on Eliquis for this. He states he has had worsening fatigue over the past few weeks. Upon presentation to the hospital, his hemoglobin was 7.2 and is currently 6.7. Of note, on 04/12/2018 it was 12.3. The patient has had a history of varices in the past and follows mundo Encarnacion. REVIEW OF SYSTEMS: Ten point review of systems negative except as per HPI. PAST MEDICAL HISTORY: Hepatocellular carcinoma, pulmonary embolism on Eliquis, portal vein thrombosi s, IVC thrombosis, hypertension. PAST SURGICAL HISTORY: None. ALLERGIES: No known drug allergies. CURRENT MEDICATIONS: Reviewed. FAMILY HISTORY: Hypertension. SOCIAL HISTORY: Smokes half a pack per day, denies alcohol or recreational drug use currently. Form er alcohol use. VITAL SIGNS: Temperature 97.9, pulse 81, respirations 16, satting 97% on room air, blood pressure 13 7/73. LABORATORY DATA: Hemoglobin 7.2 on admission down to 6.7 currently. The patient's baseline is more 8-9, however, was 12.3 on 04/12/2018. White blood cells 5.1, platelets 160. PT 17, INR 1.4, PTT 34. 1. D-dimer 1.65 in 01/2018 at the time of his PE diagnosis. BUN 20, creatinine 1.01. AST 47, ALT 3 8, alkaline phosphatase 174, total bilirubin 0.7, albumin 3.2. IMAGING DATA: CT angio of the chest dated 05/15/2018 shows stable appearance of the right upper lobe thrombus, worsening parenchymal changes which were more pleural based and could be on the basis of t he chronic embolus, caudate lobe mass and changes in the left lobe of the lung are difficult to asses s on the arterial phase examination, but are probably stable with what appears to be thrombus extendi ng to the IVC level. Splenomegaly. Stable right adrenal lesion. Heterogenous right adrenal mass an d stable appearance to the smaller left adrenal lesion. ASSESSMENT AND PLAN: A 62-year-old male with hepatocellular carcinoma, status post radiati on and currently on palliative sorafenib. History of pulmonary embolism, on Eliquis, presenting with gastrointestinal bleed. The patient had been coughing up some blood over the last month, but recent ly in the past week or two has noticed blood in his stool. States his last bowel movement was dark b rown, but denied any blood in the stool. The patient's hemoglobin was 7.2, which was down from 12.3 last month, it is currently 6.7. He received a unit yesterday without much improvement, hemoglobin a ctually dropped. The patient is getting another unit of blood currently and is awaiting Dr. Encarnacion's e valuation. Eliquis is currently on hold and would recommend holding the sorafenib as well as this dr jany can contribute to bleeding. I discussed the plan with the patient and his and they were in a greement. Pending correction of bleeding, the patient can follow up with Dr. Lyons in the clinic. Thank you for this consult.
--- NOTE | 2018-05-16 14:15 | PRG ---
DATE OF SERVICE: 05/16/2018 SUBJECTIVE: Mr. Vance is feeling okay, just weak. He is getting his second unit of blood this mor anastacio, hemoglobin declined further to 6.7 overnight despite 1 unit transfusion yesterday. He has selena ined hemodynamically stable, otherwise asymptomatic. He had a normal appearing bowel movement earlie r today which did not appear too dark. OBJECTIVE: VITAL SIGNS: Temperature 98.4, blood pressure 132/73, pulse 80, 99% oxygen saturation on room air. GENERAL: No acute distress. He is pale. HEART: Regular rate and rhythm. LUNGS: Clear to auscultation bilaterally. ABDOMEN: Mild distention. Bowel sounds present, soft, nontender to palpation. EXTREMITIES: No peripheral edema. LABORATORY STUDIES: Hemoglobin down to 6.7, WBC 5.1, platelets 160. INR 1.4. Sodium 134, potassium 4.4, BUN 20, creatinine 1.01, alkaline phosphatase 174, AST 47, ALT 38, total bilirubin 0.7. ASSESSMENT AND PLAN: 1. Acute blood loss anemia. 2. Melena. 3. History of gastric arteriovenous malformations and portal hypertensive gastropathy. 4. Metastatic hepatocellular carcinoma, on sorafenib. 5. History of recent pulmonary embolus and malignant IVC thrombus, on Eliquis. I reviewed with Mr. Vance that he has indeed had a significant decline in hemoglobin just over the past couple of weeks, in the context of melenic stools, concerning for recurrent gastrointestinal ble eding. I would suspect he is probably having a subacute ongoing oozing from gastric and possibly the small bowel arteriovenous malformations which were previously seen. Obviously, this is a very diffi cult situation due to his IVC thrombus and recent pulmonary embolus requiring anticoagulation. We wi ll schedule him for EGD tomorrow. Eliquis will have been held for 2 days by that time. Continue to hold Eliquis for now. Continue the PPI. In the longer term, prognosis for his metastatic HCC is quite grave. The patient understands this.
[2018-05-16] MEDS: Nicotine 14 MG PATCH TD SCH (19:13)
[2018-05-17 05:19] LABS: #Eosinphils 0.1 thou/uL (0.0-0.7); #Lymphocytes 0.5 thou/uL (1.20-3.40); #Monocytes 0.5 thou/uL (0.11-0.59); #Neutrophils 3.9 thou/uL (1.40-6.50); %Eosinophils 2.7 % (0.0-10.0); %Lymphocytes 9.1 % (21.0-51.0); %Monocytes 9.4 % (0.0-10.0); %Neutrophils 78.9 % (42.0-75.0); Hemoglobin 7.5 g/dL (14.0-18.0); Mean Corpuscular Hemoglobin 27.9 pg (27.0-31.0); Mean Corpuscular Volume 87.2 fL (78.0-98.0); Mean Platelet Volume 8.2 fL (7.4-10.4); Platelet Count 156 thou/uL (130-400); RBC Distribution Width 18.4 % (11.5-14.5); Red Blood Cell (RBC) Count 2.68 mill/uL (4.70-6.10)
[2018-05-17 05:32] LABS: ALT (SGPT) 27 U/L (8-55); AST (SGOT) 32 U/L (5-34); Albumin 2.7 g/dL (3.4-4.8); Alkaline Phosphatase 172 U/L (40-150); Anion Gap 11 mmol/L (10-20); BUN (Urea Nitrogen) 22 mg/dL (8.4-25.7); Bilirubin, Total 0.5 mg/dL (0.2-1.2); Calc. Creatinine Clearance 91 mL/min (70-130); Calcium 8.1 mg/dL (7.8-10.44); Carbon Dioxide 22 mmol/L (23-31); Chloride 109 mmol/L (98-107); Estimated GFR-MDRD 70; Globulin 4.5 g/dL (2.4-3.5); Glucose 109 mg/dL (80-115); Potassium 4.6 mmol/L (3.5-5.1); Protein, Total 7.2 g/dL (5.8-8.1); Sodium 137 mmol/L (136-145)
[2018-05-17] MEDS: Folic Acid 1 MG TAB PO SCH (08:10)
[2018-05-17] MEDS: Ferrous Sulfate 325 MG TAB PO SCH (08:10)
[2018-05-17] MEDS: Cyanocobalamin (Vitamin B-12) 1,000 MCG TAB PO SCH (08:10)
[2018-05-17] MEDS: Pantoprazole 80 MG in Sodium Chloride 0.9% 100 ML IVP SCH (09:06)
--- NOTE | 2018-05-17 10:34 | DIS ---
PRIMARY CARE PHYSICIAN: [facility] call admission. DATE OF ADMISSION: 05/15/2018 DATE OF DISCHARGE: 05/17/2018 DISCHARGE DISPOSITION: Home. PRIMARY DISCHARGE DIAGNOSES: 1. Anemia due to acute blood loss. 2. Gastrointestinal bleed. SECONDARY DISCHARGE DIAGNOSES: Chronic pulmonary embolus. Chronic portal vein thrombosis secondary to tumor, hepatocellular carcinoma. PRIMARY PROCEDURE/OPERATION: Upper endoscopy is planned for today. RADIOLOGICAL INVESTIGATION: CT angiography showed thrombus in the right upper lobe. SIGNIFICANT LABORATORY DATA: WBC 5.0, hemoglobin 7.5, platelet 156. INR 1.4. Sodium 137, creatinin e 1.08, AST 32, ALT 27, alkaline phosphatase 172, albumin 2.7, troponin I 0.026. DISCHARGE MEDICATIONS: Eliquis 5 mg p.o. daily, magnesium 250 mg p.o. daily, ____ 200 mg p.o. a.c. and at bedtime, Aldactone 50 mg p.o. b.i.d., vitamin B12 1000 mcg p.o. daily, ferrous sulfate 325 mg p.o. daily, folic acid 1 mg p.o. daily, Protonix 40 mg p.o. daily. CONTRAINDICATIONS: None. CODE STATUS: DNR. This was discussed during this admission. INPATIENT CONSULTANTS: Dr. Wiggins, oncologist, was following while in hospital. GI team was marialuisa knox while in hospital. TEST RESULTS PENDING ON DISCHARGE: EGD report. DISCHARGE PLAN: Post hospital, the patient will follow up with primary care physician, oncologist, a s well as lease out man as instructed. HOSPITAL COURSE: The patient is a 62-year-old male who has a diagnosis of hepatocellular carcinoma a nd patient is getting oral chemotherapy. He is not a candidate for surgical or local therapy for his cancer and that is why he is on oral chemotherapy p.o. At this time, the patient was brought to ER for right-sided pain. The patient was found with a right pulmonary embolism, which appears to be chr onic. The patient also has portal vein thrombosis from tumor invasion. He is already on chronic ant icoagulation with Eliquis. During this admission, the patient was found with symptomatic anemia. He was given 2 units of blood transfusion. GI team was following and they decided to do upper endoscop y. Oncology was consulted. This patient's anemia is multifactorial. This patient already decided to continue anticoagulant ther apy. Today after upper endoscopy the patient is planned for discharge. This patient is at risk for recurrent anemia from his chronic anticoagulation as well as tumor, hepat ocellular carcinoma, that is why I advised this patient to check periodic hemoglobin through his prim [facility] physician and if needed, the patient will benefit from blood transfusion. I have seen and examined the patient at bedside today. I have spent almost 20-25 minute bedside to bob tate patient education about anemia. VITAL SIGNS: Temperature 98.4, pulse 87, respiratory rate 20, saturation 96% on room air, blood pres sure 131/78, weight 198 pounds. GENERAL: The patient is currently alert, awake, no obvious acute distress. HEAD: Normocephalic, atraumatic. EYES: Pallor plus. No nystagmus. ENT: Pale mucous membrane, no oral lesion, no pharyngeal erythema. NECK: Supple. No JVD. LUNGS: Clear to auscultation without any rhonchi or rales. CARDIAC: S1, S2 regular without any murmur. ABDOMEN: Soft and benign. EXTREMITIES: No edema. NEUROLOGIC: Nonfocal examination. REVIEW OF SYSTEMS: Reviewed with the patient and negative. This patient will be discharged home later on today with the above-mentioned medications after upper endoscopy done. Total time spent on discharge day 31 minutes.
[2018-05-17] MEDS ORDERED: Promethazine HCl 25 MG/ML VIAL SLOW IVP PRN (11:29)
[2018-05-17] MEDS ORDERED: Promethazine HCl 25 MG/ML VIAL IM PRN (11:29)
[2018-05-17] MEDS ORDERED: Ondansetron HCl/PF 4 MG/2 ML Vial IVP PRN (11:29)
--- NOTE | 2018-05-17 12:05 | OP ---
DATE OF PROCEDURE: 05/17/2018 SURGEON: Dr. Tyshawn Gregory PREOPERATIVE DIAGNOSIS: Upper gastrointestinal bleed. PROCEDURE: After informed consent was obtained, the patient was placed in the left lateral decubitus position. Anesthesia was administered per the Anesthesia Department. Forward-viewing endoscope was inserted into the esophagus under direct visualization with ease and passed to the second portion of the duodenum with ease. Second portion of the duodenum was normal. The duodenal bulb was normal ex cept for diffuse small vascular ectasias throughout the duodenal bulb and extending into the second p ortion of the duodenum. These numbered in the thousands and were not amenable to endoscopic therapy. This also involved the distal one half of the stomach, there was some heme staining. Retroflexion in the stomach was normal. The esophagus was normal throughout. ASSESSMENT: 1. Diffuse small arteriovenous malformations involving the distal one half of the stomach, duodenal bulb and second portion of the duodenum with some heme staining - these are not amenable to endoscopi c therapy and will probably rebleed if Eliquis is resumed. RECOMMENDATIONS: 1. May resume Eliquis, but this will probably result in future bleeding. Alternatives need to be co nsidered. 2. Trial of nadolol. 3. PPI b.i.d. 4. Stable for discharge from GI standpoint.
[2018-05-17 12:38] VITALS: BP 129/59; TEMP 98.2
[2018-05-18] MEDS ORDERED: Nadolol 40 MG TAB PO SCH (09:00)
== END 2018-05-17 13:45 | disposition home or self-care (01) | DRG 378 ==
LOC: ERS 09:05 → ERHOLD 12:10 → ONC 14:21
PROVIDERS: ADMIT Family Medicine; ATTEND Internal Medicine
PROC: 0DJ08ZZ Inspection of Upper Intestinal Tract, Via Natural or Artificial Opening Endoscopic (ICD-10-PCS; principal; 2018-05-17)
DX: K92.2 Gastrointestinal hemorrhage, unspecified (principal); D62 Acute posthemorrhagic anemia; C22.0 Liver cell carcinoma; I10 Essential (primary) hypertension; F17.210 Nicotine dependence, cigarettes, uncomplicated; Z86.711 Personal history of pulmonary embolism; K29.70 Gastritis, unspecified, without bleeding; Q27.33 Arteriovenous malformation of digestive system vessel; Z79.01 Long term (current) use of anticoagulants
CPT/HCPCS: 36415; 36430; 71275; 80048; 80053; 82274; 83735; 84484; 85025; 85610; 85730; 86850; 86900; 86901; 93005; C9113; J7050; P9016

== ENCOUNTER 2018-05-28 08:18 | Day surgery (SDC) | payer BC ==
[2018-05-28 10:16] VITALS: BMI 30.1
[2018-05-28] MEDS ORDERED: Acetaminophen 500 MG TAB PO SCH (11:00)
[2018-05-28] MEDS ORDERED: diphenhydrAMINE 25 MG CAP PO SCH (11:00)
[2018-05-28 21:46] VITALS: BP 126/71; TEMP 98.7
[2018-05-28 22:04] LABS: #Eosinphils 0.1 thou/uL (0.0-0.7); #Lymphocytes 0.4 thou/uL (1.20-3.40); #Monocytes 0.3 thou/uL (0.11-0.59); #Neutrophils 2.4 thou/uL (1.40-6.50); %Eosinophils 3.6 % (0.0-10.0); %Lymphocytes 11.8 % (21.0-51.0); %Monocytes 9.6 % (0.0-10.0); %Neutrophils 73.9 % (42.0-75.0); Hemoglobin 6.3 g/dL (14.0-18.0); Mean Corpuscular HGB CONC 31.7 g/dL (32.0-36.0); Mean Corpuscular Hemoglobin 27.6 pg (27.0-31.0); Mean Corpuscular Volume 86.9 fL (78.0-98.0); Mean Platelet Volume 7.8 fL (7.4-10.4); Platelet Count 157 thou/uL (130-400); RBC Distribution Width 17.2 % (11.5-14.5); Red Blood Cell (RBC) Count 2.29 mill/uL (4.70-6.10); White Blood Cell (WBC) Count 3.3 thou/uL (4.8-10.8)
== END 2018-05-28 22:10 | disposition home or self-care (01) ==
LOC: ONC/OP 08:18 → 2SE 08:21 → ONC/OP 22:10
PROVIDERS: ATTEND Internal Medicine Hematology & Oncology
PROC: 30233N1 Transfusion of Nonautologous Red Blood Cells into Peripheral Vein, Percutaneous Approach (ICD-10-PCS; principal; 2018-05-28)
DX: D64.9 Anemia, unspecified (principal); D69.6 Thrombocytopenia, unspecified; Z79.01 Long term (current) use of anticoagulants; Z79.899 Other long term (current) drug therapy
CPT/HCPCS: 36415; 36430; 85025; 86850; 86900; 86901; P9016

== ENCOUNTER 2018-06-25 08:02 | Day surgery (SDC) | payer BC ==
[2018-06-25] MEDS ORDERED: Acetaminophen 500 MG TAB PO SCH (09:30)
[2018-06-25] MEDS ORDERED: diphenhydrAMINE 25 MG CAP PO SCH (09:30)
[2018-06-25] MEDS ORDERED: Sodium Chloride 0.9% 30 ML ONE (11:47)
[2018-06-25 15:50] LABS: Hemoglobin 5.9 g/dL (14.0-18.0)
[2018-06-25 18:12] VITALS: BP 153/74; TEMP 98.4
== END 2018-06-25 18:17 | disposition home or self-care (01) ==
LOC: ONC/OP 08:02
PROVIDERS: ATTEND Internal Medicine Hematology & Oncology
DX: D64.9 Anemia, unspecified (principal); D69.6 Thrombocytopenia, unspecified
CPT/HCPCS: 36430; 85014; 85018; 86850; 86900; 86901; P9016

== ENCOUNTER 2018-07-05 11:01 | Day surgery (SDC) | payer BC ==
[2018-07-05] MEDS ORDERED: Acetaminophen 500 MG TAB PO SCH (11:15)
[2018-07-05] MEDS ORDERED: diphenhydrAMINE 25 MG CAP PO SCH (11:15)
[2018-07-05] MEDS ORDERED: Sodium Chloride 0.9% 20 ML ONE (11:19)
[2018-07-05 14:08] LABS: Hemoglobin 6.2 g/dL (14.0-18.0)
[2018-07-05 16:18] VITALS: BP 143/78; TEMP 98
== END 2018-07-05 16:18 | disposition home or self-care (01) ==
LOC: ONC/OP 11:01
PROVIDERS: ATTEND Internal Medicine Hematology & Oncology
PROC: 30233N1 Transfusion of Nonautologous Red Blood Cells into Peripheral Vein, Percutaneous Approach (ICD-10-PCS; principal; 2018-07-05)
DX: D64.9 Anemia, unspecified (principal); D69.6 Thrombocytopenia, unspecified; Z79.01 Long term (current) use of anticoagulants; Z79.899 Other long term (current) drug therapy
CPT/HCPCS: 36430; 85014; 85018; 86850; 86900; 86901; P9016

== ENCOUNTER 2018-07-17 08:56 | Outpatient (CLI) | payer BC ==
--- NOTE | 2018-07-17 10:51 | CT ---
CHEST CT WITH CONTRAST: ABDOMEN CT WITH CONTRAST: HISTORY: Hepatocellular carcinoma. Renal carcinoma. Restaging. The patient is status post chemotherapy. COMPARISON: CT angiograms chest from 02/15/2018 and 05/15/2018. CORRELATION: MRI Abdomen 12/14/2017 TECHNIQUE: Chest and abdomen CTs are performed with IV contrast. Coronal reformatted images are submitted for i nterpretation. The patient was also administered enteric contrast. FINDINGS: CHEST: No evidence of axillary lymphadenopathy. No mediastinal mass, lymphadenopathy, or hematoma. Heart size is within normal limits. No significa nt pericardial fluid. The thoracic and abdominal aorta have a normal caliber. No periaortic fat str anding. The trachea and central bronchi are patent. Chronic changes in the right lung are noted. No suspicious masses or consolidation. Redemonstration of calcified lymph nodes in the left hilum and calcified granulomatous nodules in the left lower lob e. No consolidation or suspicious nodules. No pneumothorax or pleural effusion. Persistent filling defect involving the right upper lobe pulmonary arterial system. The remaining ce ntral pulmonary arteries have appropriate opacification with contrast. ABDOMEN: There is a small amount of perihepatic fluid. There is a heterogeneous appearance of the h epatic parenchyma, predominantly in the caudate lobe, central right hepatic lobe, and left hepatic lo be. [place] involvement of the caudate lobe measures 2 x 3 cm. 5.7 x 3.7 cm on prior MRI. There is thrombus in the main portal vein, with thrombus extending into the left portal venous system . There is also thrombus involving the inferior vena cava, superior to the renal vein. Thrombus roula ears to extend into the inferior vena cava and is just proximal to the right atrium. The spleen is mildly enlarged. There is a small amount of perisplenic fluid. The pancreas is unrema rkable. There is redemonstration of nodules involving the left and right adrenal glands. The left adrenal no dules measures 2.6 x 1.5 cm (previously measuring 1.5 x 1.6 cm. There is a large mass occupying the right adrenal gland, currently measuring 4.2 x 3.5 cm (previously measuring 4.4 x 3.2 cm. No evidenc e of obstructive uropathy. No gastrohepatic, retrocrural, or periportal lymphadenopathy. No mesenteric mass, free air, or significant lymphadenopathy. There is perihepatic and perisplenic f luid. The visualized alimentary canal is grossly unremarkable. Questionable mucosal thickening of segments of small bowel in the left hemiabdomen, incompletely evaluated. No lytic or blastic lesions in the osseous structures. IMPRESSION: 1. Persistent thrombus of the right upper lobe pulmonary arterial system. 2. Evidence of hepatic metastases/malignancy. The territory service representative lesion is in the caudate lobe and has been described above. 3. Thrombosis of the inferior vena cava, just superior to the renal veins. Thrombus extends into th e inferior vena cava and is just proximal to the right atrium. 4. Portal vein thrombosis. 5. Lesions involving both adrenal glands, right greater than left.
== END 2018-07-17 08:57 | disposition home or self-care (01) ==
LOC: BICCT 08:56
PROVIDERS: ATTEND Internal Medicine Hematology & Oncology
DX: C78.7 Secondary malignant neoplasm of liver and intrahepatic bile duct (principal); C64.9 Malignant neoplasm of unspecified kidney, except renal pelvis; I81 Portal vein thrombosis; E27.9 Disorder of adrenal gland, unspecified; I82.220 Acute embolism and thrombosis of inferior vena cava; K76.9 Liver disease, unspecified; I26.99 Other pulmonary embolism without acute cor pulmonale
CPT/HCPCS: 71260; 74160

== ENCOUNTER 2018-07-31 11:08 | Day surgery (SDC) | payer BC ==
[2018-07-31] MEDS ORDERED: diphenhydrAMINE 25 MG CAP ONE (12:09)
[2018-07-31] MEDS ORDERED: Acetaminophen 500 MG TAB ONE (12:09)
[2018-07-31 15:25] LABS: Hemoglobin 5.5 g/dL (14.0-18.0)
[2018-07-31 17:04] LABS: Hemoglobin 6.4 g/dL (14.0-18.0)
[2018-07-31 17:06] VITALS: BP 153/65; TEMP 98.4
[2018-07-31 19:40] LABS: #Eosinphils 0.1 thou/uL (0.0-0.7); #Lymphocytes 0.5 thou/uL (1.20-3.40); #Monocytes 0.4 thou/uL (0.11-0.59); #Neutrophils 2.7 thou/uL (1.40-6.50); %Basophils 0.9 % (0.0-1.0); %Eosinophils 2.8 % (0.0-10.0); %Lymphocytes 12.3 % (21.0-51.0); %Monocytes 10.1 % (0.0-10.0); %Neutrophils 73.8 % (42.0-75.0); Hemoglobin 7.9 g/dL (14.0-18.0); Mean Corpuscular HGB CONC 31.8 g/dL (32.0-36.0); Mean Corpuscular Hemoglobin 29.6 pg (27.0-31.0); Mean Platelet Volume 7.8 fL (7.4-10.4); Platelet Count 124 thou/uL (130-400); RBC Distribution Width 16.8 % (11.5-14.5); Red Blood Cell (RBC) Count 2.67 mill/uL (4.70-6.10); White Blood Cell (WBC) Count 3.7 thou/uL (4.8-10.8)
== END 2018-07-31 19:40 | disposition home or self-care (01) ==
LOC: ONC/OP 11:08 → PACU-TCU 11:16 → ONC/OP 19:40
PROVIDERS: ATTEND Internal Medicine Hematology & Oncology
PROC: 30233N1 Transfusion of Nonautologous Red Blood Cells into Peripheral Vein, Percutaneous Approach (ICD-10-PCS; principal; 2018-07-31)
DX: D64.9 Anemia, unspecified (principal); D69.6 Thrombocytopenia, unspecified
CPT/HCPCS: 36415; 36430; 62272; 85014; 85018; 86850; 86900; 86901; P9016

== ENCOUNTER 2018-08-05 09:28 | Day surgery (SDC) | payer BC ==
[2018-08-05] MEDS ORDERED: diphenhydrAMINE 25 MG CAP PO SCH (10:00)
[2018-08-05] MEDS ORDERED: Acetaminophen 500 MG TAB PO SCH (10:00)
[2018-08-05 15:22] LABS: Hemoglobin 6.8 g/dL (14.0-18.0)
[2018-08-05 18:03] VITALS: BP 148/70; TEMP 97.9
== END 2018-08-05 18:33 | disposition home or self-care (01) ==
LOC: ONC/OP 09:28
PROVIDERS: ATTEND Internal Medicine Hematology & Oncology
PROC: 30233N1 Transfusion of Nonautologous Red Blood Cells into Peripheral Vein, Percutaneous Approach (ICD-10-PCS; principal; 2018-08-05)
DX: D64.9 Anemia, unspecified (principal); D69.6 Thrombocytopenia, unspecified; Z79.01 Long term (current) use of anticoagulants; Z79.899 Other long term (current) drug therapy
CPT/HCPCS: 36430; 85014; 85018; 86850; 86900; 86901; P9016

== ENCOUNTER → 2018-08-19 | Day surgery (SDC) | payer BC ==
[~2018-08-19] MED LIST: Acetaminophen 500 MG TAB PO SCH; Ondansetron PF 4 MG/2 ML Vial IVP SCH; Sodium Chloride 0.9% 10 ML ONE; diphenhydrAMINE 25 MG CAP PO SCH
[2018-08-19 14:20] LABS: Hemoglobin 6.1 g/dL (14.0-18.0)
[2018-08-19 16:44] VITALS: BP 128/71; TEMP 98.4
[2018-08-19 17:35] LABS: Hemoglobin 7.1 g/dL (14.0-18.0); Platelet Count 138 thou/uL (130-400)
== END ==
LOC: ONC/OP 09:40
PROVIDERS: ATTEND Internal Medicine Hematology & Oncology
PROC: 30233N1 Transfusion of Nonautologous Red Blood Cells into Peripheral Vein, Percutaneous Approach (ICD-10-PCS; principal; 2018-08-19)
DX: D64.9 Anemia, unspecified (principal); D69.6 Thrombocytopenia, unspecified; Z79.01 Long term (current) use of anticoagulants; Z79.899 Other long term (current) drug therapy
CPT/HCPCS: 36430; 85014; 85018; 86850; 86900; 86901; 96374; J2405; P9016; Q0163

== ENCOUNTER → 2018-08-26 | Day surgery (SDC) | payer BC ==
[~2018-08-26] MED LIST changes: -Ondansetron PF 4 MG/2 ML Vial IVP SCH; -Sodium Chloride 0.9% 10 ML ONE; +Sodium Chloride 0.9% 20 ML ONE
[2018-08-26 14:55] LABS: Hemoglobin 6.2 g/dL (14.0-18.0); Platelet Count 157 thou/uL (130-400)
[2018-08-26 15:03] VITALS: BP 136/72; TEMP 98.8
== END ==
LOC: ONC/OP 09:59
PROVIDERS: ATTEND Internal Medicine Hematology & Oncology
PROC: 30233N1 Transfusion of Nonautologous Red Blood Cells into Peripheral Vein, Percutaneous Approach (ICD-10-PCS; principal; 2018-08-26)
DX: D64.9 Anemia, unspecified (principal); D69.6 Thrombocytopenia, unspecified; Z79.01 Long term (current) use of anticoagulants; Z79.899 Other long term (current) drug therapy
CPT/HCPCS: 36430; 85014; 85018; 85049; 86850; 86900; 86901; P9016; Q0163

== ENCOUNTER 2018-09-02 10:05 | Day surgery (SDC) | payer BC ==
[2018-09-02] MEDS ORDERED: Acetaminophen 500 MG TAB PO SCH (10:15)
[2018-09-02] MEDS ORDERED: diphenhydrAMINE 25 MG CAP PO SCH (10:30)
[2018-09-02] MEDS ORDERED: Sodium Chloride 0.9% 40 ML ONE (10:51)
[2018-09-02 14:09] LABS: Hemoglobin 6.9 g/dL (14.0-18.0)
[2018-09-02 17:15] VITALS: BP 144/77; TEMP 98.4
== END 2018-09-02 17:15 | disposition home or self-care (01) ==
LOC: ONC/OP 10:05
PROVIDERS: ATTEND Internal Medicine Hematology & Oncology
PROC: 30233N1 Transfusion of Nonautologous Red Blood Cells into Peripheral Vein, Percutaneous Approach (ICD-10-PCS; principal; 2018-09-02)
DX: D64.9 Anemia, unspecified (principal); D69.6 Thrombocytopenia, unspecified
CPT/HCPCS: 36430; 80053; 82248; 82728; 83615; 84100; 84436; 84443; 84550; 85014; 85018; 86850; 86900; 86901; P9016; Q0163

== ENCOUNTER 2018-09-09 21:55 | Observation (INO) | payer BC ==
[~2018-09-09 21:55] MED LIST changes: -Acetaminophen 500 MG TAB PO SCH; +ISOVUE-370 76%-LOCM 1 ML ONE; -Sodium Chloride 0.9% 20 ML ONE; -Sodium Chloride 0.9% 500 ML IVPB SCH; -diphenhydrAMINE 25 MG CAP PO SCH
[2018-09-09 23:26] LABS: PTT 48.2 SEC (22.9-36.1)
[2018-09-09 23:29] LABS: ALT (SGPT) 17 U/L (8-55); AST (SGOT) 35 U/L (5-34); Alkaline Phosphatase 142 U/L (40-150); Anion Gap 15 mmol/L (10-20); BUN (Urea Nitrogen) 21 mg/dL (8.4-25.7); Bilirubin, Total 3.4 mg/dL (0.2-1.2); Calc. Creatinine Clearance 0 mL/min (70-130); Calcium 8.9 mg/dL (7.8-10.44); Carbon Dioxide 20 mmol/L (23-31); Chloride 101 mmol/L (98-107); Estimated GFR-MDRD 66; Glucose 120 mg/dL (80-115); Potassium 3.9 mmol/L (3.5-5.1); Sodium 132 mmol/L (136-145)
[2018-09-09 23:46] LABS: #Eosinphils 0.1 thou/uL (0.0-0.7); #Lymphocytes 0.5 thou/uL (1.20-3.40); #Monocytes 0.6 thou/uL (0.11-0.59); #Neutrophils 10.1 thou/uL (1.40-6.50); %Basophils 0.2 % (0.0-1.0); %Eosinophils 0.9 % (0.0-10.0); %Lymphocytes 4.6 % (21.0-51.0); %Monocytes 5.1 % (0.0-10.0); %Neutrophils 89.2 % (42.0-75.0); Hemoglobin 10.9 g/dL (14.0-18.0); Mean Corpuscular Volume 84.4 fL (78.0-98.0); Mean Platelet Volume 9.2 fL (7.4-10.4); Platelet Count 264 thou/uL (130-400); RBC Distribution Width 18.6 % (11.5-14.5); Red Blood Cell (RBC) Count 4.04 mill/uL (4.70-6.10); White Blood Cell (WBC) Count 11.3 thou/uL (4.8-10.8)
--- NOTE | 2018-09-09 23:48 | RAD ---
CHEST ONE VIEW: INDICATIONS: History of diarrhea and altered mental status. COMPARISON: A prior single view of the chest dated 02/15/2018. FINDINGS: Low lung volumes accentuate the cardiac silhouette and pulmonary vasculature. No consolidation, pleu ral effusion, or pneumothorax evident. No acute osseous abnormality is noted. IMPRESSION: 1. Low lung volumes. 2. No definite acute abnormality. POS: [facility]
--- NOTE | 2018-09-09 23:50 | CT ---
CT BRAIN WITHOUT CONTRAST: INDICATIONS: History of altered mental status and liver cancer. COMPARISON: None. FINDINGS: No acute infarct, hemorrhage, or hydrocephalus is present. The septum pellucidum and third ventricle are midline. The mastoid air cells are clear. The paranasal sinuses are clear. IMPRESSION: No acute intracranial abnormality is demonstrated by CT. POS: [facility]
[2018-09-09 23:53] LABS: Prothrombin Time 51.8 SEC (12.0-14.7)
[2018-09-10] LABS: INR-International Normal Ratio 5.8
--- NOTE | 2018-09-10 00:06 | CT ---
CT ABDOMEN AND PELVIS WITH IV CONTRAST: INDICATIONS: History of liver malignancy, status post two blood transfusions recently, now with altered mental sta tus. COMPARISON: Prior CT chest and abdomen dated 07/17/2018. FINDINGS: Again seen is extensive suspected tumor thrombus within the IVC, projecting up to the atrial IVC bord er. There is extensive tumor thrombus within the portal vein, with complete occlusion of the left po rtal vein. The lesion within the medial left hepatic lobe has increased in size, now measuring 5.3 cm, where it previously measured 3.3 cm. The lesion within the caudate lobe has also increased in size, measuring 4.2 cm, where it previously measured 3 cm. There is a new lesion within the lateral left hepatic lo be measuring 2.7 cm. There is heterogeneous enhancement of the liver. There is cirrhotic morphology of the liver. There are calcified granuloma within the spleen. The spleen is enlarged, measuring 17 cm. This is s lightly less prominent than on prior examination, where it measured 18.7 cm. There is moderate ascites, which is new from the prior exam. The colon is largely decompressed, with accentuation of the wall thickness. A component of colitis c annot be excluded. There are numerous dilated loops of small bowel within the central abdomen, without a definite transi tion zone, which may reflect mild ileus. There is opacification of the SMV. Bilateral adrenal masses are again seen. The right adrenal mass measures 3.8 cm, which is stable. T he left adrenal mass is slightly enlarged, now measuring 3.2 cm, where it previously measured 2.6 cm. There is diffuse osteopenia. There is scattered degenerative arthritic change. IMPRESSION: 1. Worsening liver malignancy. There are enlarging lesions within the caudate lobe and left hepatic lobe. There is a new lesion seen within the peripheral aspect of the lateral left hepatic lobe. 2. Extensive thrombus again seen within the inferior vena cava and portal vein. 3. Worsening ascites. 4. Dilatation of numerous loops of small bowel may reflect an ileus. No definite transitional zone is present. 5. Suggested wall thickening involving the colon, which may be related to wall edema from the patien t's portal vein thrombus; however, a colitis is not entirely excluded. 6. Findings of prior granulomatous disease. POS: [facility]
[2018-09-10] MEDS ORDERED: Pantoprazole 40 MG VIAL ONE (00:23)
[2018-09-10] MEDS ORDERED: cefTRIAXone\\ROCEPHIN 1 GM VIAL ONE (00:23)
[2018-09-10] MEDS ORDERED: Pantoprazole 80 MG in Sodium Chloride 0.9% 100 ML IVP SCH (00:45)
[2018-09-10 01:48] LABS: Hemoglobin 8.8 g/dL (14.0-18.0)
[2018-09-10] MEDS ORDERED: Morphine 2 MG/ML SYRINGE ONE ×2 (06:25→11:30)
[2018-09-10] MEDS ORDERED: Ondansetron PF 4 MG/2 ML Vial ONE ×2 (06:25→11:26)
[2018-09-10] MEDS ORDERED: Morphine 4 MG/ML VIAL SLOW IVP PRN (07:00)
[2018-09-10] MEDS ORDERED: Ondansetron PF 4 MG/2 ML Vial IVP PRN (07:01)
[2018-09-10 07:38] LABS: Hemoglobin 9.5 g/dL (14.0-18.0)
[2018-09-10] MEDS ORDERED: Morphine 4 MG/ML VIAL ONE ×2 (11:26→14:14)
[2018-09-10 13:42] LABS: Hemoglobin 8.9 g/dL (14.0-18.0)
[2018-09-10] MEDS ORDERED: Ketorolac Tromethamine 30 MG/ML VIAL IVP PRN (14:37)
[2018-09-10] MEDS ORDERED: Ketorolac Tromethamine 30 MG/ML VIAL ONE (14:40)
[2018-09-10 15:37] VITALS: BMI 27.3
[2018-09-10] MEDS: Sodium Chloride 0.9% 1,000 ML IV SCH (16:10)
--- NOTE | 2018-09-10 16:55 | CON ---
DATE OF CONSULTATION: REASON FOR CONSULT: Hepatoma. HISTORY OF PRESENT ILLNESS: Mr. Vance is a 63-year-old gentleman with alcoholic liver disease, who was diagnosed with hepatoma in February of 2018. He had caudate lobe liver mass with involvement of the portal vein and IVC. He was referred to a Hepatology Center in [facility]. He was found to be unresectable. He did undergo SPRT x5 fractions and then was started on palliative sorafenib. He is having significant side effects from this medication. During this time frame, he had a pulmonary embolus and was started on Eliquis. He had multiple episodes of GI bleed. His Eliquis was decreased to 2.5 mg b.i.d. He was eventually transitioned to Nexavar. Over the last several months, he has had multiple GI bleeds requiring a transfusion initially monthly, then every 2 weeks and now weekly. His last blood transfusion was yesterday. He has had increasing abdominal discomfort with weight loss and loss of appetite since July. Nexavar was discontinued in August and he received one dose of Opdivo immunotherapy. Over the last several days, he has had confusion, diarrhea, and abdominal bloating. He presented to the emergency room this morning for abdominal pain. He did undergo an abdominal and pelvis CT, which unfortunately showed an increase in his liver lesions. The medial left hepatic lobe mass increased from 3.3 cm to 5.3 cm. The caudate lobe mass increased from 3 cm to 4.2 cm. There was a new lesion in the lateral left hepatic lobe measuring 2.7 cm. Extensive thrombus was seen again in the inferior vena cava and portal vein. PAST MEDICAL HISTORY: 1. Metastatic hepatoma. 2. Alcoholic liver disease with cirrhosis. 3. Portal hypertension. 4. Pulmonary embolism. 5. GI bleed. 6. Hypertension. 7. Chronic kidney disease. 8. Acid reflux. PAST SURGICAL HISTORY: Liver biopsy. ALLERGIES: NO KNOWN DRUG ALLERGIES. HOME MEDICATIONS: 1. Eliquis 2.5 mg b.i.d. 2. Ferrous sulfate daily. 3. Folic acid daily. 4. Hydrocodone 7.5 mg p.r.n. 5. Lasix 20 mg daily. 6. Magnesium 250 mg daily. 7. MS Contin 15 ER b.i.d. 8. Zofran p.r.n. 9. Protonix 40 mg daily. 10. Spironolactone 50 mg daily. 11. B12 daily. FAMILY HISTORY: No history of GI malignancies. SOCIAL HISTORY: , has one child. Lives with his spouse. Current everyday smoker [id number] history. Heavy drinking of 10 to 12 beers daily, quit in November 2017. No illicit drug use. REVIEW OF SYSTEMS: CONSTITUTIONAL: No fever, chills, or night sweats. EYES: No blurred or double vision. ENT: No pain, hoarseness, sore throat, or dysphagia. CV: No chest pain or palpitations. RESPIRATORY: No shortness of breath or dyspnea on exertion. GASTROINTESTINAL: Positive for nausea, diarrhea, GI bleeding, and abdominal pain. GENITOURINARY: No dysuria or hematuria. MUSCULOSKELETAL: Positive for joint pain. SKIN: No rash or pruritus. HEMATOLOGICAL: Positive for bleeding. NEUROLOGICAL: Positive for weakness and confusion. PHYSICAL EXAMINATION: VITAL SIGNS: Temperature is 98.4, pulse is 89, respiratory rate 15, blood pressure is 136/79, and he is 98% on room air. GENERAL: This is a chronically-ill male, in moderate distress. HEENT: Normocephalic, atraumatic. Pupils are equal and reactive to light. NECK: Supple. CV: Regular rate and rhythm. LUNGS: Diminished. ABDOMEN: Distended and exquisitely tender to palpation. EXTREMITIES: He has 2+ bilateral lower extremity edema. SKIN: No rash. Positive for jaundice. HEMATOLOGICAL: No petechiae or purpura. NEUROLOGICAL: Nonfocal. PSYCH: The patient is alert and appropriate. PERTINENT LABS AND X-RAYS: Current WBCs are 11.3, hemoglobin 8.9, hematocrit 28.3, platelet count 264,000, 89% neutrophils, 5% lymphocytes. PT is 51.8, INR is 5.8 , and PTT is 48.2. Sodium is 132, potassium 3.9, chloride 101, CO2 is 20, BUN is 21, creatinine 1.13, calcium is 8.9, bilirubin is 3.4, AST is 35, ALT is 17, alkaline phosphatase is 142, and ammonia is 43. Serum total protein is 8, albumin 3, globulin 5. ASSESSMENT: 1. Progressive hepatoma. 2. Gastrointestinal bleed secondary to coagulopathy and anticoagulation. 3. Intractable pain. DISCUSSION: The CT findings were discussed with patient, his , and family. He has significant pain poorly controlled with morphine at this time. He has a history of chronic gi bleeding, but unfortunately due to thrombus in the IVC, cannot be taken off anticoagulation. He has become transfusion dependent over the past few weeks. He has also lost weight since the beginning of the year. Due to these findings and general decline of health, we discussed focusing on comfort care with hospice. Both the patient and family wish to pursue hospice at this time. I think he is a candidate for inpatient hospice given his poorly controlled pain. We will consult [facility]. I will increase his Morphine, add Toradol. He agrees to DNR. The case was discussed in detail with Dr. Lyons and Dr. Ware. Thank you for the consult. Job ID: [id number] [facility]
[2018-09-10] MEDS: Morphine 4 MG/ML VIAL SLOW IVP PRN ×3 (17:36→19:46)
--- NOTE | 2018-09-10 22:24 | CON ---
DATE OF CONSULTATION: REASON FOR CONSULT: Melena, history of liver cancer, and abdominal pain. HISTORY OF PRESENT ILLNESS: Mr. Vance is a 63-year-old gentleman, well known to Dr. Gamaliel Encarnacion, his primary gastrologist, who was diagnosed with hepatocellular carcinoma last year when he presented with shortness of breath and anemia. At the time of diagnosis, he presented with portal vein thrombosis, inferior vena cava thrombosis. Subsequent evaluation showed pulmonary embolus, is on Eliquis and he was having intermittent bleeding, underwent upper and lower endoscopies with portal hypertensive gastropathy and few angioectasias. Colonoscopy showed polyps removed, largest was 2 cm. More recently, he has been having to get transfused fairly regularly. He had an EGD in 04/2018 with findings of gastric AV malformations, portal hypertensive gastropathy. His endoscopy at that time showed such bad AVMs in the esophagus and stomach. We then not felt this could be amenable to endoscopic evaluation. Recently in the past couple of months, he has been bleeding more, had a unit of transfusion. He has reported some melena at times. He was given 8 units of blood in July and 5 units of blood so far this month. In June, he did receive 5 units of blood. Talking with him, the main complaint today is of pain. He actually states he just finished talk with [facility] and I think he is going to go ahead and move along that line as his imaging studies have shown advancement of his tumor based on today's studies versus does in June. He is not having any active GI bleed at this time and he is getting some pain medicine. PAST MEDICAL HISTORY: 1. Metastatic hepatocellular carcinoma, previously did have directed radiotherapy ablation of 5 tumors and was placed on Nexavar. He has had complications of pulmonary embolus, was on Eliquis on and off, but at times more recently, he has been having more problems with bleeding. He did receive Opdivo in August, but he felt he had more confusion and diarrhea from that and bloating and he is not inclined to use that again. 2. Cirrhosis, presumptively from alcohol liver disease. 3. Portal hypertension. 4. Pulmonary embolism. 5. GI bleeding from AVMs and portal gastropathy. 6. Hypertension. 7. Chronic kidney disease. 8. Reflux. PAST SURGICAL HISTORY: Liver biopsy as noted above. ALLERGIES: NO KNOWN DRUG ALLERGIES. MEDICATIONS: 1. Eliquis. 2. Iron. 3. Folic acid. 4. Hydrocodone. 5. Lasix. 6. Magnesium. 7. MS Contin. 8. Zofran. 9. Protonix. 10. Spironolactone. 11. B12. FAMILY HISTORY: Negative for GI malignancies or hepatitis C or liver cancer. SOCIAL HISTORY: He is , has one child. Lives with spouse. Smokes 35-pack year history. He used to drink 6 to 12 beers a day, but quit in 11/2017. PRESENT MEDICATIONS: At this time, he is on; 1. Toradol. 2. Morphine. 3. Zofran. 4. Protonix. 5. Normal saline 75 an hour. PHYSICAL EXAMINATION: GENERAL: He is very pale. He has muscle wasting. He is resting in bed. He is alert and oriented. VITAL SIGNS: Temperature is 98, pulse 85, and blood pressure is 137/74. LUNGS: Clear. HEART: Regular rate and rhythm. ABDOMEN: Tender to touch. EXTREMITIES: Reveal some trace edema. There is no asterixis. NEUROLOGIC: He is awake, alert, and oriented. LABORATORY DATA: Hemoglobin is 8.9 at 1332 hours, it was 10.9 at 2200 hours yesterday, it was 6.9 at 1355 hours yesterday. INR is 5.8 today. Comprehensive metabolic profile; sodium 133, potassium 3.9, chloride 101, bicarb 20, BUN and creatinine are 21 and 1.13. Albumin is 3. Ammonia was 43. Platelet count was 267 on 09/09. ASSESSMENT: 1. At this time, the patient has advancing hepatocellular carcinoma. Imaging studies compared to today from June. He has had radio frequency ablation, then Nexavar, now Opdivo. At this time, he talked with the Hospice and has decided to move towards palliative care. 2. Abdominal pain. He does have trace ascites. There are no overt signs of spontaneous bacterial peritonitis. He is not a candidate for paresthesias with his INR elevation. He had received empiric antibiotics in the ER, which is reasonable. 3. History of ongoing bleeding. At this time with INR of 5 and more transfusion requirement recently, I suspect his coagulopathy is worsening. I think it is going to stop his blood thinner. If he is not going to go hospice, I would do this in conjunction with his oncologist if they felt to be okay, but I think at this time with his worsening hepatic function, I do not think he needs anymore anticoagulation, probably not actually has. In the past, his INR has always been normal. 4. Again if he were to decide not to move on with palliative care, we can consider repeat endoscopy, although I suspect we will see more of the same that Dr. Gregory saw last April. We will go and check back tomorrow, make sure that really what he wants to do, but it seems the plans were made for hospice at this time. We will follow along with you. Job ID: [id number]
[2018-09-10 23:37] VITALS: BP 127/73; TEMP 98.6
--- NOTE | 2018-09-11 07:21 | SS ---
DATE OF ADMISSION: 09/10/2018 DATE OF DISCHARGE: 09/10/2018 PRIMARY CARE PROVIDER: None. CHIEF COMPLAINT: Abdominal pain. HISTORY OF PRESENT ILLNESS: Mr. Vance is a pleasant 63-year-old gentleman, who was seen at [facility] on September 10, 2018. He has a history of metastatic hepatocellular cancer. His reports that over the last month he has been having bloody stools. He has been getting transfusions through the [facility]. He had transfusion yesterday. When he went home, he had bloody stool. He complained of abdominal pain. He was confused. He was unable to tolerate any oral diet. The patient also reports that his legs have been swelling over the last few weeks. He denies any fevers or chills. He denies any nausea or vomiting. He reports that he was was switched to Opdivo recently. REVIEW OF SYSTEMS: All other systems reviewed and found to be negative. 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 PAST SURGICAL HISTORY None. FAMILY HISTORY: Hypertension in his father. ALLERGIES: NO KNOWN DRUG ALLERGIES. CURRENT MEDICATIONS: 1. Opdivo as directed. 2. Morphine p.r.n. 3. Metoclopramide p.r.n. 4. Spironolactone 50 mg daily. 5. Pantoprazole 40 mg daily. 6. Eliquis 2.5 mg two times a day. SOCIAL HISTORY: The patient uses E-cigarettes. He denies alcohol use or recreational drug use. PHYSICAL EXAMINATION: GENERAL: On examination, Mr. Vance is sleepy, but arousable, not in acute distress. VITAL SIGNS: Blood pressure is 151/92, pulse 89, respiratory rate 20, and oxygen saturation 97% on room air. He is afebrile. EYES: He has scleral icterus, conjunctival pallor. ENT: Moist mucosal membranes. No oropharyngeal erythema or exudates. NECK: Supple and nontender, trachea is midline. RESPIRATORY: Accessory muscles of breathing are not active. Chest wall movements are symmetric bilaterally. LUNGS: Clear to auscultation without wheeze, rhonchi, or crepitations. CARDIOVASCULAR: S1 and S2 are heard, regular. Peripheral pulses palpable. No carotid bruit. No pericardial rub. ABDOMEN: Distended, diffuse mild tenderness, unable to assess for guarding or rigidity because the patient kept complaining of pain, could not assess for hepatomegaly or splenomegaly. Bowel sounds heard. NEUROLOGIC: Cranial nerves 2 through 12 are intact. MUSCULOSKELETAL: Power is 5/5 in all four extremities. He has bilateral lower extremity edema. SKIN: Cutaneous icterus, spider nevi. LYMPHATIC: No cervical lymphadenopathy. PSYCHIATRIC: Normal mood, normal affect, the patient is oriented to person, place, and time. LABORATORY DATA: Mr. Vance' labs and investigations were reviewed. I reviewed his electrocardiogram, which shows sinus tachycardia, no ST changes to suggest acute coronary syndrome. He has occasional premature ventricular complexes. I also reviewed his chest x-ray, which does not show any pulmonary infiltrates. Noncontrast CT scan of the brain did not show any acute intracranial abnormality. CT scan of the abdomen and pelvis showed worsening liver malignancy, new lesion within the peripheral aspect of the lateral left hepatic lobe, extensive thrombus within the inferior vena cava and portal vein, worsening ascites, dilatation of numerous loops of small bowel, wall thickening involving the colon, which may be related to wall edema from the patient's portal vein thrombosis and findings of prior granulomatous disease. He has leukocytosis with 11,300 white cells, of which 89.2% are neutrophils, normocytic anemia with hemoglobin of 10.9, normal platelet count, INR 5.8, hyponatremia with sodium 132, normal potassium, normal creatinine, elevated total bilirubin of 3.4, elevated AST of 35, normal ALT, normal alkaline phosphatase, and decreased albumin of 3. Ammonia level is normal at 43. ASSESSMENT AND PLAN: Mr. Vance is a pleasant 63-year-old gentleman, who was seen at [facility] on September 10, 2018. His problem list includes: 1. GI bleed: Mr. Vance is presenting with recurrent GI bleed. He is receiving transfusions on an as-needed basis. Today, his hemoglobin has been relatively stable. GI service has been consulted. 2. Acute metabolic encephalopathy: Mr. Vance had acute metabolic encephalopathy at home, likely related to his malignancy. He does have mild hyponatremia, not enough to explain acute metabolic encephalopathy. It appears that he has improved significantly after coming to the emergency room. 3. Portal vein thrombosis: The patient is currently on Eliquis. 4. Hepatocellular carcinoma: Oncology Service was consulted. The patient and had discussions with Oncology Service. After discussing the various treatment options, the patient and opted to have inpatient hospice. Currently, Case Management is working on arranging for inpatient hospice. Once inpatient hospice is arranged, the patient will be discharged to inpatient hospice. 5. If the patient is not discharged to inpatient hospice today, he will be treated in the hospital. I did discuss his code status. He is DNAR. LEVEL OF RISK: High. LEVEL OF COMPLEXITY: High. Job ID: [id number] [facility]
--- NOTE | 2018-09-14 19:57 | EKG ---
Test Reason : Blood Pressure : / mmHG Vent. Rate : 102 BPM Atrial Rate : 102 BPM P-R Int : 142 ms QRS Dur : 094 ms QT Int : 358 ms P-R-T Axes : 021 -20 022 degrees QTc Int : 466 ms Sinus tachycardia with occasional Premature ventricular complexes Low voltage QRS Possible Lateral infarct , age undetermined Abnormal ECG Confirmed by EDUARD ROWAN DO ([id number]), editor magazine MARK [employer]IR[employer]ANKS ([id number]) on 09/14/2018 7:57:00 PM Referred By: Confirmed By:EDUARD ROWAN DO
== END 2018-09-10 20:38 | disposition hospice, inpatient (51) ==
LOC: ERS 21:55 → INTOOBSV 09-10 00:10 → ERHOLD 09-10 00:10 → 2NO 09-10 14:42
PROVIDERS: ADMIT Hospitalist; ATTEND Hospitalist
DX: K92.2 Gastrointestinal hemorrhage, unspecified (principal); R10.9 Unspecified abdominal pain; C22.9 Malignant neoplasm of liver, not specified as primary or secondary; K70.31 Alcoholic cirrhosis of liver with ascites; G93.41 Metabolic encephalopathy; K76.6 Portal hypertension; I81 Portal vein thrombosis; K31.89 Other diseases of stomach and duodenum; I12.9 Hypertensive chronic kidney disease with stage 1 through stage 4 chronic kidney disease, or unspecified chronic kidney disease; N18.9 Chronic kidney disease, unspecified; K21.9 Gastro-esophageal reflux disease without esophagitis; E87.1 Hypo-osmolality and hyponatremia; R41.82 Altered mental status, unspecified; Z66 Do not resuscitate; Z79.01 Long term (current) use of anticoagulants; Z79.899 Other long term (current) drug therapy
CPT/HCPCS: 36415; 36430; 70450; 71045; 74177; 80053; 82140; 82274; 85014; 85018; 85025; 85049; 85610; 85730; 86850; 86900; 86901; 93005; 96361; 96365; 96366; 96367; 96375; 96376; C9113; G0378; J0696; J1885; J2270; J2405; J7050; P9016; Q0163; Q9966

== ENCOUNTER → 2018-09-09 | Day surgery (SDC) | payer BC ==
[~2018-09-09] MED LIST changes: +Sodium Chloride 0.9% 500 ML IVPB SCH
[2018-09-09 13:41] LABS: Hemoglobin 7.6 g/dL (14.0-18.0); Platelet Count 174 thou/uL (130-400)
[2018-09-09 16:19] VITALS: BP 121/62; TEMP 98.5
== END ==
LOC: ONC/OP 09:30
PROVIDERS: ATTEND Internal Medicine Hematology & Oncology
PROC: 30233N1 Transfusion of Nonautologous Red Blood Cells into Peripheral Vein, Percutaneous Approach (ICD-10-PCS; principal; 2018-09-09)
DX: D64.9 Anemia, unspecified (principal); K70.30 Alcoholic cirrhosis of liver without ascites; I81 Portal vein thrombosis; C22.0 Liver cell carcinoma
CPT/HCPCS: 36430; 85014; 85018; 85049; 86850; 86900; 86901; 96361; P9016; Q0163